=== PATIENT | female | born 1960 | race Two or more races ===

== ENCOUNTER → 2019-12-13 11:38 | Outpatient (BNVA) | payer MEDICARE, MEDICAID, SELFPAY | PROVIDERS: PCP Internal Medicine; Referring Provider Internal Medicine; Visit Provider Dietitian, Registered | DX: Z76.89 Persons encountering health services in other specified circumstances (principal) ==

== ENCOUNTER → 2020-01-13 12:46 | Outpatient (BNVA) | payer MEDICARE, SELFPAY | PROVIDERS: PCP Internal Medicine; Referring Provider Internal Medicine; Visit Provider Dietitian, Registered | DX: Z76.89 Persons encountering health services in other specified circumstances (principal) ==

== ENCOUNTER 2021-02-12 09:11 | Outpatient (REF) | payer MEDICARE, MEDICAID, SELFPAY ==
--- NOTE | ~2021-02-12 | XR_ITS ---
EXAMINATION: XR HAND, RIGHT CLINICAL INFORMATION: Other specified soft tissue disorders. Unspecified injury. COMPARISON: None TECHNIQUE: PA, lateral, and oblique views of the right hand. FINDINGS: No acute fracture or dislocation. Mild joint space narrowing with small marginal osteophytes at the triscaphe and 1st carpometacarpal joints as well as scattered throughout the metacarpophalangeal and interphalangeal joints. No concerning osseous erosion. No abnormal soft tissue calcification. XR/XR hand RT min 3V IMPRESSION: [id number] osteoarthritis at the triscaphe and 1st carpometacarpal joints as well as scattered throughout the metacarpophalangeal and interphalangeal joints.
== END 2021-02-12 09:12 | disposition home or self-care (01) ==
LOC: HO.XRAY 09:11
PROVIDERS: PCP Family Medicine; Visit Provider Internal Medicine
DX: S69.91XD Unspecified injury of right wrist, hand and finger(s), subsequent encounter (principal); M79.89 Other specified soft tissue disorders
CPT/HCPCS: 73130

== ENCOUNTER 2021-06-27 09:00 | Outpatient (REF) | payer MEDICARE, SELFPAY ==
--- NOTE | ~2021-06-27 | MM_ITS ---
EXAMINATION: MM SCREENING DIGITAL BREAST TOMOSYNTHESIS, BILATERAL CLINICAL INFORMATION: Screening. Asymptomatic. The lifetime risk of breast cancer based on the Tyrer-Cuzick Model is 8.6%. COMPARISON: Mammography: December 21, 2017 and studies dating back to November 25, 2011 TECHNIQUE: Digital breast tomosynthesis is performed in both the craniocaudal and mediolateral oblique views along with computer-aided detection (CAD). Synthesized 2D images are generated from the tomosynthesis. FINDINGS: There are scattered areas of fibroglandular density (ACR BI-RADS breast composition Category b). There are no new significant masses, abnormal calcifications, or other abnormalities. MM/MM tomosynthesis screening BI IMPRESSION: There are no significant changes from prior study. ASSESSMENT: BI-RADS 1: Negative RECOMMENDATION: Routine annual mammography screening. This patient's information was entered into a reminder system with a target due date for their next mammogram.
== END 2021-06-27 09:01 | disposition home or self-care (01) ==
LOC: HO.MAMMO 09:00
PROVIDERS: PCP Internal Medicine; Visit Provider Internal Medicine
DX: Z12.31 Encounter for screening mammogram for malignant neoplasm of breast (principal)
CPT/HCPCS: 77063; 77067

== ENCOUNTER → 2021-07-18 10:00 | Outpatient (BNVA) | payer MEDICARE, MEDICAID, SELFPAY | PROVIDERS: PCP Internal Medicine; Visit Provider Nurse Practitioner | DX: Z12.11 Encounter for screening for malignant neoplasm of colon (principal); K59.00 Constipation, unspecified | CPT/HCPCS: 99202; 99212 ==

== ENCOUNTER → 2022-04-16 08:54 | Day surgery (SDC) | payer MEDICARE, MEDICAID, SELFPAY ==
[2022-04-10 16:12] VITALS: BMI 29.5
--- NOTE | 2022-04-16 10:09 | PC.NURSE ---
pt having formed stool only took 1/[address] navarrete aware pt cancelled will reschedule aware careplan
== END ==
PROVIDERS: PCP Family Medicine; Visit Provider Internal Medicine Gastroenterology
DX: Z12.11 Encounter for screening for malignant neoplasm of colon (principal); Z53.8 Procedure and treatment not carried out for other reasons

== ENCOUNTER 2022-04-29 09:02 | Day surgery (SDC) | payer MEDICARE, MEDICAID, SELFPAY ==
[2022-04-29 10:02] VITALS: BP 121/50; PULSE 72; RESP 18; TEMP 36.2; O2SAT 100; BMI 26.2
[2022-04-29 10:04] LABS: Glucose, Whole Blood 76 mg/dL (60-115)
[2022-04-29] MEDS: Lactated Ringers 1,000 ML 50 ML IVCONT (10:08)
[2022-04-29] MEDS: Dextrose 5 % 100 ML 21 ML IV (10:23)
--- NOTE | 2022-04-29 10:34 | MHC.SHP ---
Pre-Procedural Eval Section A Date of Service: 04/29/22 Section B Chief Complaint: screening Relevant Family History (Specify if Yes): No Relevant Social History: None Present Medications: see Short Stay Collaborative assessment Medical History: Significant History (Obesity High cholesterol Hypertension Diabetes History of TIA no residual problems) History of Previous Operations: Relevant previous surgery/procedure and date(s) (Bilateral carpal tunnel release Cataract surgery Tonsillectomy Tubal ligation) Allergies: Allergies Allergy/AdvReac Type Severity Reaction Status Date / Time No Known Allergies Allergy Verified 04/24/22 12:30 Review of Systems Sugical H&P ROS: Negative: Constitution, Cardiovascular, Respiratory, Neurological, Psychiatric, Hem-Onc, Allergic/Immunologic, Gastrointestinal, Genitourinary, Musculoskeletal, Integumentary, Endocrine and Eyes/Ears/Nose/Throat Exam Surgical H&P Exam: Normal: HEENT, Normal: Heart, Normal: Lungs, Normal: Extremities, Normal: Abdomen, Normal: Skin and Normal: Neurological Plan Diagnosis/Plan: Unchanged I have reviewed the history and physical and performed a pertinent physical examination on my patient. No changes have occurred unless specified. Time Spent With Patient Time: Total time managing care of this patient today ____ minutes.
--- NOTE | 2022-04-29 10:36 | W.PM.OPN ---
Operative Note Operative Note Date of Service: 04/29/22 Narrative: Operative Information Procedure Description: Colonoscopy Indication: screening Anesthesia: MAC COLONOSCOPY Instrument: Olympus variable stiffness pediatric scope 190L Colonoscopy Monitoring: Vital signs and clinical assessment, continuous EKG monitoring, Pulse oximetry, Carbon Dioxide monitoring and blood pressure monitoring were done throughout the procedure. Colon withdrawal time was 10 minutes. Procedure: The patient was placed in the left lateral decubitis position and pre-procedure medications were administered. After a digital rectal examination of the ano-rectum, the video colonoscope was inserted into the rectum and advanced through the colon to the cecum/TI. The colonoscope was slowly withdrawn in a retrograde panoramic fashion and the colon mucosa was carefully examined including a retroflexed view of the rectum. Findings and interventions are described below. Procedure Difficulty: easy Findings: Terminal Ileum-normal Cecum:normal Ascending Colon: 8-10 mm sessile polyp removed with cold snare Transverse Colon -normal Descending Colon:normal Sigmoid Colon: mild diverticulosis Rectum: Retroflexion with medium sized internal hemorrhoids, grade I Anorectum - normal Colon preparation: [place] Bowel Preparation Scale Right colon; 1-2 Transverse colon: 2 Left colon; 1-2 (0 = Unprepared colon segment with mucosa not seen due to solid stool that cannot be cleared. 1 = Portion of mucosa of the colon segment seen, but other areas of the colon segment not well seen due to staining, residual stool and/or opaque liquid. 2 = Minor amount of residual staining, small fragments of stool and/or opaque liquid, but mucosa of colon segment seen well. 3 = Entire mucosa of colon segment seen well with no residual staining, small fragments of stool or opaque liquid) Impression and Post Procedure Diagnosis: polyp internal hemorrhoids diverticular disease Plan: High fiber diet leaflet Avoid straining at stool, epsom salts and sitz bath, anusol supps or cream Repeat Colonoscopy in 6-8 months due to prep or earlier if clinically indicated Above findings were reviewed with the patient and relevant handouts were provided if indicated.
[2022-04-29 10:50] LABS: Glucose, Whole Blood 83 mg/dL (60-115)
[2022-04-29 11:20] VITALS: BP 108/52; PULSE 64; RESP 16; TEMP 36.1; O2SAT 100
[2022-04-29 11:35] VITALS: BP 120/58; PULSE 66; RESP 16; TEMP 36.2; O2SAT 100
== END 2022-04-29 12:13 | disposition home or self-care (01) ==
LOC: HO.SSS 09:02
PROVIDERS: PCP Family Medicine; Visit Provider Internal Medicine Gastroenterology
PROC: 0DJD8ZZ Inspection of Lower Intestinal Tract, Via Natural or Artificial Opening Endoscopic (ICD-10-PCS; CPT 45378; principal; 2022-04-29 10:20)
DX: Z12.11 Encounter for screening for malignant neoplasm of colon (principal); D12.2 Benign neoplasm of ascending colon; K57.30 Diverticulosis of large intestine without perforation or abscess without bleeding; K64.8 Other hemorrhoids; E78.00 Pure hypercholesterolemia, unspecified; I10 Essential (primary) hypertension
CPT/HCPCS: 45385; 82947; 88305

== ENCOUNTER 2022-07-22 10:47 | Outpatient (REF) | payer OTHER, SELFPAY ==
--- NOTE | ~2022-07-22 | MM_ITS ---
EXAMINATION: MM SCREENING DIGITAL BREAST TOMOSYNTHESIS, BILATERAL CLINICAL INFORMATION: Screening. Asymptomatic. The lifetime risk of breast cancer based on the Tyrer-Cuzick Model is 11%. COMPARISON: Mammography: 06/27/2021, 12/21/2017, 10/22/2015 TECHNIQUE: Digital breast tomosynthesis is performed in both the craniocaudal and mediolateral oblique views along with computer-aided detection (CAD). Synthesized 2D images are generated from the tomosynthesis. FINDINGS: There are scattered areas of fibroglandular density (ACR BI-RADS breast composition Category b). Parenchymal pattern is similar to prior exams. There are scattered asymmetries similar to prior studies. No significant mass or developing density or architectural abnormality. Again, there is a circumscribed mass posterior central 3:00 right breast with moderate coarse calcifications consistent with degenerating fibroadenoma. The axilla and skin contours are unremarkable. There are no significant changes. MM/MM tomosynthesis screening BI IMPRESSION: No mammographic evidence of malignancy. ASSESSMENT: BI-RADS 2: Benign RECOMMENDATION: Routine annual mammography screening. This patient's information was entered into a reminder system with a target due date for their next mammogram.
== END 2022-07-22 10:48 | disposition home or self-care (01) ==
LOC: HO.MAMMO 10:47
PROVIDERS: PCP Family Medicine; Visit Provider Family Medicine
DX: Z12.31 Encounter for screening mammogram for malignant neoplasm of breast (principal)
CPT/HCPCS: 77063; 77067

== ENCOUNTER 2022-09-02 11:22 | Outpatient (REF) | payer OTHER, SELFPAY ==
[2022-09-02 13:39] LABS: Estimated Average Glucose 237 mg/dL; Hemoglobin A1c % 9.9 %
[2022-09-02 14:12] LABS: Vitamin B12 627 pg/mL (200-900)
== END 2022-09-02 11:23 | disposition home or self-care (01) ==
LOC: HO.HHCL 11:22
PROVIDERS: Visit Provider Family Medicine
DX: R80.9 Proteinuria, unspecified (principal); E11.29 Type 2 diabetes mellitus with other diabetic kidney complication; Z79.4 Long term (current) use of insulin
CPT/HCPCS: 36415; 82607; 83036

== ENCOUNTER 2022-11-04 08:52 | Day surgery (SDC) | payer OTHER, SELFPAY ==
[2022-10-31 11:50] VITALS: BMI 26.2
--- NOTE | 2022-11-03 09:22 | P.CONAN_ITS ---
Documented by User: Kerrie Garcia NP 11/03/22 09:24 HPI - Anesthesia Eval Consult details Narrative: 62yo F for Colonoscopy s/p colo 04/2022 with MAC PMFSH Active Problems Active Problems: All Active Problems (Updated 05/05/22 @ 13:24 by ELDA Nagel) Tubular adenoma of colon (Acute) Constipation (Acute) Colon cancer screening (Acute) Obesity (BMI 30-39.9) (Acute) Anxiety and depression (Acute) Hypercholesterolemia (Acute) Hypertension (Acute) Type 2 diabetes mellitus with hyperglycemia (Acute) Past Medical History Medical History Diabetes CVA (cerebral vascular accident) Obesity (BMI 30-39.9) Anxiety and depression Hypercholesterolemia Hypertension Family History Family History Father No problems noted. Mother Breast cancer Brother Diabetes Brother Drug abuse Surgical History Surgical History History of carpal tunnel release History of cataract surgery History of tonsillectomy History of tubal ligation Social History Social History Patient Tobacco Use Status: Former Tobacco user Quit Date: 12 years ago Meds Allergies Allergy/AdvReac Type Severity Reaction Status Date / Time No Known Allergies Allergy Verified 04/24/22 12:30 Home Medications Medication Instructions Recorded Confirmed Last Taken Type atorvastatin 20 mg tablet 20 mg PO DAILY 07/18/21 04/24/22 Unknown History gabapentin 100 mg capsule 100 mg PO TID 07/18/21 04/24/22 Unknown History glipizide 10 mg tablet mg PO 07/18/21 Unknown History sucralfate 100 mg/mL oral PO 07/18/21 Unknown History suspension Exam Exam Date and Time: November 03, 2022 09 Height,Weight and Vital Signs: Height 5 ft Weight 60.78 kg Assessment and Plan Assessment Anesthesia Assessment: Chart Reviewed Documented by User: Evelyn Carlos MD 11/04/22 09:55 [facility] Active Problems Active Problems: All Active Problems (Updated 11/04/22 @ 09:38 by Evelyn Carlos MD) Tubular adenoma of colon (Acute) Constipation (Acute) Colon cancer screening (Acute) Obesity (BMI 30-39.9) (Acute) Anxiety and depression (Acute) Hypercholesterolemia (Acute) Hypertension (Acute) Type 2 diabetes mellitus with hyperglycemia (Acute) Incomplete prep 05/15. For repeat colonoscopy today Remote h/o CVA - last 2007. No residual effects Past Medical History Medical History Diabetes CVA (cerebral vascular accident) Obesity (BMI 30-39.9) Anxiety and depression Hypercholesterolemia Hypertension Family History Family History Father No problems noted. Mother Breast cancer Brother Diabetes Brother Drug abuse Family history of problems with anesthesia: No Surgical History Surgical History History of carpal tunnel release History of cataract surgery History of tonsillectomy History of tubal ligation History of Problems with Anesthesia: No Social History Social History Patient Tobacco Use Status: Former Tobacco user Quit Date: 12 years ago Meds Allergies Allergy/AdvReac Type Severity Reaction Status Date / Time No Known Allergies Allergy Verified 04/24/22 12:30 Home Medications Medication Instructions Recorded Confirmed Last Taken Type atorvastatin 20 mg tablet 20 mg PO DAILY 07/18/21 04/24/22 Unknown History gabapentin 100 mg capsule 100 mg PO TID 07/18/21 04/24/22 Unknown History glipizide 10 mg tablet mg PO 07/18/21 Unknown History sucralfate 100 mg/mL oral PO 07/18/21 Unknown History suspension Exam Height,Weight and Vital Signs: Height 5 ft Weight 60.78 kg Vital Signs Temp Pulse Resp BP Pulse Ox O2 Del Method 11/04/22 09:12 98 F 62 18 139/63 99 Room Air Pertinent Lab Results Pertinent Lab Results: POC 174mg% Airway Mallampati Class: II TM Dist: >3cm Neck ROM: Full Denture: Upper and Lower Loose/Missing/Broken Teeth: Yes Heart: RRR Lungs: CTAB Assessment and Plan Assessment Anesthesia Assessment: Anesthesia Plan Discussed Final Anesthetic Review Family History of Problems with Anesthesia: No History of Problems with Anesthesia: No ASA Class: III Final Preanesthetic Review: No Changes in Pt Med Stat, Meds/Allgs Chart Reviewed, Consent Obtained/Reviewed and Anes Risks/Benef Reviewed Patient Risk: Intermediate Procedure Risk: Low Assessment/Block/Sedation in SS: Assess/Block/Sedation-SS Anesthetic Plan Anesthetic Plan: MAC: Disposition: Standard PACU
[2022-11-04 09:12] VITALS: BP 139/63; PULSE 62; RESP 18; TEMP 36.6; O2SAT 99
[2022-11-04] MEDS: Lactated Ringers 1,000 ML 100 ML IVCONT (09:33)
--- NOTE | 2022-11-04 09:44 | MHC.SHP ---
Pre-Procedural Eval Section A Date of Service: 11/04/22 Section B Chief Complaint: Encounter for screening for malignant neoplasm of Relevant Family History (Specify if Yes): No Relevant Social History: None Present Medications: see Short Stay Collaborative assessment Medical History: Significant History (Diabetes CVA (cerebral vascular accident) Obesity (BMI 30-39.9) Anxiety and depression Hypercholesterolemia Hypertension) History of Previous Operations: Relevant previous surgery/procedure and date(s) (History of carpal tunnel release History of cataract surgery History of tonsillectomy History of tubal ligation) Allergies: Allergies Allergy/AdvReac Type Severity Reaction Status Date / Time No Known Allergies Allergy Verified 04/24/22 12:30 Review of Systems Sugical H&P ROS: Negative: Constitution, Cardiovascular, Respiratory, Neurological, Psychiatric, Hem-Onc, Allergic/Immunologic, Gastrointestinal, Genitourinary, Musculoskeletal, Integumentary, Endocrine and Eyes/Ears/Nose/Throat Exam Surgical H&P Exam: Normal: HEENT, Normal: Heart, Normal: Lungs, Normal: Extremities, Normal: Abdomen, Normal: Skin and Normal: Neurological Plan Diagnosis/Plan: Unchanged I have reviewed the history and physical and performed a pertinent physical examination on my patient. No changes have occurred unless specified. Time Spent With Patient Time: Total time managing care of this patient today ____ minutes.
--- NOTE | 2022-11-04 10:33 | P.OP_ITS ---
Operative Note Operative Note Date of Service: 11/04/22 Narrative: Operative Information Procedure Description: Colonoscopy Indication: hx of colon polyps Anesthesia: MAC COLONOSCOPY Instrument: Olympus variable stiffness pediatric scope 190L Colonoscopy Monitoring: Vital signs and clinical assessment, continuous EKG monitoring, Pulse oximetry, Carbon Dioxide monitoring and blood pressure monitoring were done throughout the procedure. Colon withdrawal time was 11 minutes. Procedure: The patient was placed in the left lateral decubitis position and pre-procedure medications were administered. After a digital rectal examination of the ano-rectum, the video colonoscope was inserted into the rectum and advanced through the colon to the cecum/TI. The colonoscope was slowly withdrawn in a retrograde panoramic fashion and the colon mucosa was carefully examined including a retroflexed view of the rectum. Findings and interventions are described below. Procedure Difficulty: moderate Terminal Ileum-not intubated Cecum:normal Ascending Colon: 8-10 mm sessile polyp removed with cold snare Transverse Colon -normal Descending Colon:normal Sigmoid Colon: mild diverticulosis Rectum: Retroflexion with medium sized internal hemorrhoids, grade I Anorectum - normal Colon preparation: [place] Bowel Preparation Scale Right colon; 1 Transverse colon: 2 Left colon; 1-2 (0 = Unprepared colon segment with mucosa not seen due to solid stool that cannot be cleared. 1 = Portion of mucosa of the colon segment seen, but other areas of the colon segment not well seen due to staining, residual stool and/or opaque liquid. 2 = Minor amount of residual staining, small fragments of stool and/or opaque liquid, but mucosa of colon segment seen well. 3 = Entire mucosa of colon segment seen well with no residual staining, small fragments of stool or opaque liquid) Impression and Post Procedure Diagnosis: internal hemorrhoids diverticular disease Plan: High fiber diet leaflet Avoid straining at stool, epsom salts and sitz bath, anusol supps or cream Repeat Colonoscopy in 12 months due to prep or earlier if clinically indicated--next time consider 2 d prep Above findings were reviewed with the patient and relevant handouts were provided if indicated.
[2022-11-04 11:28] VITALS: BP 127/61; PULSE 72; RESP 16; TEMP 36.2; O2SAT 98
[2022-11-04 11:43] VITALS: BP 137/71; PULSE 68; RESP 16; TEMP 36.1; O2SAT 98
== END 2022-11-04 12:26 | disposition home or self-care (01) ==
PROVIDERS: PCP Family Medicine; Visit Provider Internal Medicine Gastroenterology
PROC: 0DJD8ZZ Inspection of Lower Intestinal Tract, Via Natural or Artificial Opening Endoscopic (ICD-10-PCS; CPT 45378; principal; 2022-11-04 11:00)
DX: Z12.11 Encounter for screening for malignant neoplasm of colon (principal); K63.5 Polyp of colon; K57.30 Diverticulosis of large intestine without perforation or abscess without bleeding; K64.0 First degree hemorrhoids; Z86.010 Personal history of colon polyps; K59.00 Constipation, unspecified; E11.9 Type 2 diabetes mellitus without complications; E78.00 Pure hypercholesterolemia, unspecified; I10 Essential (primary) hypertension; Z86.73 Personal history of transient ischemic attack (TIA), and cerebral infarction without residual deficits; Z87.891 Personal history of nicotine dependence; Z79.4 Long term (current) use of insulin; Z79.899 Other long term (current) drug therapy
CPT/HCPCS: 45385

== ENCOUNTER → 2022-11-04 08:52 | Outpatient (BNV) | payer OTHER, SELFPAY | PROVIDERS: PCP Family Medicine; Visit Provider Internal Medicine Gastroenterology | DX: Z12.11 Encounter for screening for malignant neoplasm of colon (principal); Z86.010 Personal history of colon polyps; D12.2 Benign neoplasm of ascending colon; K57.30 Diverticulosis of large intestine without perforation or abscess without bleeding; K64.9 Unspecified hemorrhoids | CPT/HCPCS: 45385 ==

== ENCOUNTER 2023-07-29 09:39 | Outpatient (REF) | payer OTHER, SELFPAY ==
--- NOTE | ~2023-07-29 | MM_ITS ---
EXAMINATION: MM SCREENING DIGITAL BREAST TOMOSYNTHESIS, BILATERAL CLINICAL INFORMATION: Screening. Asymptomatic. COMPARISON: Mammography: This study is compared with prior exams dating back to 2018. TECHNIQUE: Digital breast tomosynthesis is performed in both the craniocaudal and mediolateral oblique views along with computer-aided detection (CAD). Synthesized 2D images are generated from the tomosynthesis. FINDINGS: There are scattered areas of fibroglandular density (ACR BI-RADS breast composition Category b). There are no significant masses, abnormal calcifications, or other abnormalities. There is an area of coarse, unchanged, benign calcification in the deep third of the superior aspect of the right breast. MM/MM tomosynthesis screening BI IMPRESSION: No mammographic evidence of malignancy. ASSESSMENT: BI-RADS BI-RADS 2 - Benign Findings RECOMMENDATION: Routine annual mammography screening. 1 year F/U This examination should not preclude the clinical evaluation of a suspicious palpable abnormality. This patient's information was entered into a reminder system with a target due date for their next mammogram.
== END 2023-07-29 09:40 | disposition home or self-care (01) ==
LOC: HO.MAMMO 09:39
PROVIDERS: PCP Family Medicine; Visit Provider Internal Medicine
DX: Z12.31 Encounter for screening mammogram for malignant neoplasm of breast (principal)
CPT/HCPCS: 77063; 77067

== ENCOUNTER → 2023-07-29 09:45 | Outpatient (BNV) | payer OTHER, SELFPAY | PROVIDERS: PCP Family Medicine; Visit Provider Radiology Diagnostic Radiology | DX: Z12.31 Encounter for screening mammogram for malignant neoplasm of breast (principal) | CPT/HCPCS: 77063; 77067 ==

== ENCOUNTER 2023-08-21 09:24 | Outpatient (REF) | payer OTHER, SELFPAY ==
[2023-08-21 11:25] LABS: Hematocrit 38.3 % (37.0-47.0); Hemoglobin 12.4 g/dl (12.0-16.0); Mean Corpuscular HGB Conc 32.4 g/dl (31.0-35.0); Mean Corpuscular Hemoglobin 28.2 pg (27.0-33.0); Mean Corpuscular Volume 87.2 fL (80.0-98.0); Mean Platelet Volume 11.8 fL (9.4-12.3); Platelet Count 255 X10*3/uL (160-400); Red Blood Count 4.39 X10*6/uL (4.20-5.50); Red Cell Distribution Width 13.2 % (11.0-16.0); White Blood Count 5.1 X10*3/uL (4.8-10.8)
[2023-08-21 11:52] LABS: Hemoglobin A1c % > 14.0 % (<6.0)
[2023-08-21 11:56] LABS: HBS Num1 0.43 mIU/mL (0-7.99); HBc Num1 0.19 S/CO (0.00-0.79); HBsAGNum1 0.48 S/CO (0.00-0.99); HIV AB/AG Nonreactive (Nonreactive); HIV Num 1 0.05 S/CO (0.00-0.99); Hepatitis A Antibody IgG REACTIVE (Nonreactive); Hepatitis B Core Antibody Nonreactive (Nonreactive); Hepatitis B Surface Antigen Negative (Negative); ~Hepatitis A Antibody IgG 9.89 S/CO (0.00-0.99); ~Hepatitis B Surface Antibody NONREACTIVE (Nonreactive); ~Hepatitis C Antibody Nonreactive (Nonreactive)
[2023-08-21 11:58] LABS: Alanine Aminotransferase 15 U/L (0-31); Albumin Level 4.2 g/dL (3.5-5.0); Alkaline Phosphatase 92 U/L (39-117); Anion Gap 13 (12-20); Aspartate Amino Transferase 15 U/L (5-31); Bilirubin Direct 0.1 mg/dL (0.0-0.5); Bilirubin Total 0.4 mg/dL (0.0-1.0); Blood Urea Nitrogen 14 mg/dL (9-16); Calcium 10.4 mg/dL (8.4-10.2); Carbon Dioxide 30 mmol/L (22-29); Chloride 100 mmol/L (96-108); Cholesterol 227 mg/dL (<200); Creatinine Urine 50.58 mg/dL; Estimated Glomerular Filt Rate > 60; Glucose Random 352 mg/dL (60-115); HDL Cholesterol 47 mg/dL (>40); LDL Cholesterol Calculated 126 mg/dL (<100); Microalbum/Creatinine Ratio Ur 55.3 ug/mg cr (<30); Potassium 5.1 mmol/L (3.3-5.1); Sodium 138 mmol/L (135-145); Total Protein 7.5 g/dL (6.5-8.0); Triglycerides 274 mg/dL (<150)
[2023-08-21 12:04] LABS: Thyroid Stimulating Hormone 1.53 uIU/mL (0.32-4.0); Vitamin D 25-OH Total 25.8 ng/mL (>30)
[2023-08-21 17:47] LABS: CT PCR NOT DETECTED (Not Detect.); NG PCR NOT DETECTED (Not Detect.)
[2023-08-24 16:24] LABS: RPR Rapid Plasma Reagin NON-REACTIVE (NON-REACTIVE)
== END 2023-08-21 09:25 | disposition home or self-care (01) ==
LOC: HO.HHCL 09:24
PROVIDERS: Visit Provider Family Medicine
DX: Z00.00 Encounter for general adult medical examination without abnormal findings (principal); E11.29 Type 2 diabetes mellitus with other diabetic kidney complication; R80.9 Proteinuria, unspecified; Z79.4 Long term (current) use of insulin; E78.49 Other hyperlipidemia; F33.9 Major depressive disorder, recurrent, unspecified; R20.2 Paresthesia of skin; N89.8 Other specified noninflammatory disorders of vagina; B35.1 Tinea unguium
CPT/HCPCS: 36415; 80048; 80061; 80076; 82043; 82306; 82570; 83036; 84439; 84443; 85027; 86592; 86704; 86706; 86708; 86803; 87340; 87389; 87491; 87591

== ENCOUNTER 2023-09-11 16:33 | Outpatient (REF) | payer OTHER, SELFPAY ==
[2023-09-12 05:55] LABS: CT PCR NOT DETECTED (Not Detect.); NG PCR NOT DETECTED (Not Detect.)
[2023-09-15 09:58] LABS: HPV mRNA E6/E7 Not Detected (Not Detected)
== END 2023-09-11 16:34 | disposition home or self-care (01) ==
LOC: HO.HHCLNP 16:33
PROVIDERS: Visit Provider Family Medicine
DX: Z01.419 Encounter for gynecological examination (general) (routine) without abnormal findings (principal)
CPT/HCPCS: 36415; 87491; 87591; 87624; 88175

== ENCOUNTER 2023-10-16 11:43 | Outpatient (REF) | payer OTHER, SELFPAY ==
[2023-10-16 13:23] LABS: MANUAL DIFF FLAG NO
[2023-10-16 13:37] LABS: Basophils Absolute Auto 0.1 X10*3/uL (0.0-0.2); Basophils Percent Auto 0.9 % (0-2); Eosinophils Absolute Auto 0.2 X10*3/uL (0.0-0.4); Eosinophils Percent Auto 2.7 % (0-4); Hematocrit 37.5 % (37.0-47.0); Imm Gran Abs Auto 0.03 X10*3/uL (0.00-0.03); Imm Gran Pct Auto 0.4 % (0.0-0.4); Lymphocytes Absolute Auto 3.2 X10*3/uL (1.2-4.9); Lymphocytes Percent Auto 39.7 % (20-40); Mean Corpuscular Hemoglobin 28.3 pg (27.0-33.0); Mean Corpuscular Volume 88.4 fL (80.0-98.0); Mean Platelet Volume 11.6 fL (9.4-12.3); Monocytes Absolute Auto 0.7 X10*3/uL (0.1-1.2); Monocytes Percent Auto 8.3 % (2-11); Neutrophils Absolute Auto 3.9 x10*3/uL (2.0-8.3); Platelet Count 340 X10*3/uL (160-400); Red Blood Count 4.24 X10*6/uL (4.20-5.50); Red Cell Distribution Width 13.2 % (11.0-16.0); White Blood Count 8.2 X10*3/uL (4.8-10.8)
[2023-10-16 13:59] LABS: Alanine Aminotransferase 11 U/L (0-31); Albumin Level 4.4 g/dL (3.5-5.0); Alkaline Phosphatase 77 U/L (39-117); Anion Gap 13 (12-20); Aspartate Amino Transferase 13 U/L (5-31); Bilirubin Total 0.4 mg/dL (0.0-1.0); Blood Urea Nitrogen 17 mg/dL (9-16); Calcium 10.8 mg/dL (8.4-10.2); Carbon Dioxide 28 mmol/L (22-29); Chloride 105 mmol/L (96-108); Estimated Glomerular Filt Rate > 60; Glucose Random 174 mg/dL (60-115); Lipase 76 U/L (8-78); Potassium 4.7 mmol/L (3.3-5.1); Sodium 141 mmol/L (135-145); Total Protein 8.2 g/dL (6.5-8.0)
== END 2023-10-16 11:44 | disposition home or self-care (01) ==
LOC: HO.HHCL 11:43
PROVIDERS: Visit Provider Internal Medicine Geriatric Medicine
DX: R11.2 Nausea with vomiting, unspecified (principal); Z13.89 Encounter for screening for other disorder
CPT/HCPCS: 36415; 80053; 83690; 85025

== ENCOUNTER 2023-10-16 19:30 | Emergency (ER) | payer OTHER, SELFPAY ==
--- NOTE | ~2023-10-16 | CT_ITS ---
EXAMINATION: CT ABDOMEN PELVIS WITH IV CONTRAST CLINICAL INFORMATION: upper ABD pain, N/V, poor PO inake, hx DM COMPARISON: None. TECHNIQUE: IV contrast enhanced CT of the abdomen and pelvis Intravenous Contrast: Omnipaque [address] examination was performed using dose optimization techniques as appropriate, variously including the following: *Automated exposure control *Adjustment of mA and/or kV according to patient size (this includes techniques or standardized protocols for targeted exams where dose is matched to indication/reason for exam; i.e. extremities or head) *Use of iterative reconstruction technique DLP: 456 mGy-cm FINDINGS: Visualized lung bases are clear. The liver is normal in appearance. Partial visualization is made of multiple gallstones within the gallbladder lumen. No pericholecystic fluid collections or gallbladder wall inflammatory changes noted. Partial visualization is made of a gallstone in the region of the neck of the gallbladder. The common bile duct is normal in diameter. No biliary duct dilatation noted. The pancreas, spleen, adrenal glands and kidneys are normal in appearance. Mild distention of the urinary bladder is visualized. Mild, borderline concentric mural thickening of the urinary bladder identified. Mild colonic diverticulosis is noted. Appendix is normal in appearance. No free intraperitoneal fluid or gas collections. No intestinal dilatation or mural thickening noted. Normal appearance of the stomach. The abdominal wall demonstrates no significant hernias. A 4 cm hypodense focus is present in the left uterine body likely representing a fibroid. No adnexal lesions identified. Moderate scattered aortoiliac calcific atherosclerosis noted. No suspicious skeletal abnormalities. CT/CT abdomen pelvis w IV con IMPRESSION: 1. Mild distention of the urinary bladder with mild, borderline concentric mural thickening of the urinary bladder. Findings may correlate with cystitis. 2. Mild colonic diverticulosis. No evidence of acute diverticulitis. No free intraperitoneal fluid or gas collections. Normal appendix. 3. Cholelithiasis. No biliary duct dilatation. 4. 4 cm left uterine body fibroid. Electronically signed by: Jaskaran Fraga MD 10/17/2023 12:32 AM EDT
[2023-10-16 19:33] VITALS: BP 152/49; PULSE 82; RESP 18; TEMP 36.8; O2SAT 99; BMI 27.0
[2023-10-16 20:43] LABS: MANUAL DIFF FLAG NO
[2023-10-16 20:45] LABS: Basophils Absolute Auto 0.1 X10*3/uL (0.0-0.2); Basophils Percent Auto 0.7 % (0-2); Eosinophils Absolute Auto 0.3 X10*3/uL (0.0-0.4); Eosinophils Percent Auto 2.8 % (0-4); Hematocrit 37.2 % (37.0-47.0); Hemoglobin 12.2 g/dl (12.0-16.0); Imm Gran Abs Auto 0.03 X10*3/uL (0.00-0.03); Imm Gran Pct Auto 0.3 % (0.0-0.4); Lymphocytes Absolute Auto 3.3 X10*3/uL (1.2-4.9); Lymphocytes Percent Auto 29.1 % (20-40); Mean Corpuscular HGB Conc 32.8 g/dl (31.0-35.0); Mean Corpuscular Volume 88.6 fL (80.0-98.0); Monocytes Absolute Auto 0.9 X10*3/uL (0.1-1.2); Monocytes Percent Auto 7.7 % (2-11); Neutrophils Absolute Auto 6.7 x10*3/uL (2.0-8.3); Neutrophils Percent Auto 59.4 % (45-73); Platelet Count 335 X10*3/uL (160-400); Red Cell Distribution Width 13.2 % (11.0-16.0); White Blood Count 11.3 X10*3/uL (4.8-10.8)
[2023-10-16 21:01] LABS: Alanine Aminotransferase 12 U/L (0-31); Albumin Level 4.3 g/dL (3.5-5.0); Alkaline Phosphatase 76 U/L (39-117); Anion Gap 13 (12-20); Aspartate Amino Transferase 17 U/L (5-31); Bilirubin Total 0.3 mg/dL (0.0-1.0); Blood Urea Nitrogen 19 mg/dL (9-16); Calcium 10.4 mg/dL (8.4-10.2); Carbon Dioxide 25 mmol/L (22-29); Chloride 104 mmol/L (96-108); Creatinine Clr Calc Pharmacy 60.9; Estimated Glomerular Filt Rate > 60; Glucose Random 215 mg/dL (60-115); Magnesium 1.8 mg/dL (1.6-2.6); Potassium 4.5 mmol/L (3.3-5.1); Sodium 137 mmol/L (135-145)
[2023-10-16 21:08] LABS: Lipase 309 U/L (8-78)
[2023-10-16 21:13] LABS: Appearance Urine Cloudy; Color Urine Yellow; Glucose Urine UA >=1000 mg/dL (Negative); Leukocyte Esterase Urine Moderate (2+) (Negative); Nitrite Urine Positive (Negative); PH 6.5 (5.0-9.0); Specific Gravity - Urine 1.025 (1.005-1.025); UMIC TRIGGER UACC YES; Urine Blood Negative (Negative); Urine Ketones Trace mg/dL (Negative); Urine Protein 100 (2+) mg/dL (Neg-Trace)
[2023-10-16 21:18] LABS: Bacteria Urine 4+ (None Seen); Hyaline Casts Urine 0-2 /LPF (0-2); RBC Urine 0-2 /HPF (0-2); Squamous Epithelial Cell Urine 0-2 /HPF (0-2); UACC Culture Trigger YES; WBC Urine >50 /HPF (0-5)
[2023-10-16 21:23] LABS: Influenza A PCR NEGATIVE (Negative); Influenza B PCR NEGATIVE (Negative); Resp Syncy Virus RNA Qual PCR NEGATIVE (Negative); SARS COV2 PCR INHOUSE NEGATIVE (Negative)
[2023-10-16 23:38] VITALS: BP 115/59; PULSE 88; RESP 16; TEMP 36.8; O2SAT 98
--- NOTE | 2023-10-16 23:39 | MHC.EDTECH ---
This pct assumed care of pt at 2300 ,vitals taken ,no apparent distress noted ,call patel within pt reach .
--- NOTE | 2023-10-16 23:49 | ED_ITS ---
HPI - Abdominal Pain General Chief Complaint: Abdominal Pain Stated Complaint: upper abd pain, nausea, x1wk Time Seen by Provider: 10/16/23 23:26 Source: patient Mode of arrival: ambulatory Limitations: no limitations History of Present Illness HPI narrative: Patient is a 63-year-old female who presents emergency department for evaluation. She reports that she has been experiencing diffuse upper abdominal pain with nausea vomiting poor appetite and a single episode of diarrhea. Onset of symptoms was over the past week. She admits to having some dysuria upon initiation of urinary stream, but denies frequency, urgency, hesitancy, or hematuria. Denies lower abdominal pain or back pain. Denies fevers or chills. Patient is a diabetic, reports her blood sugar levels have been around 140, compliant with her Lantus nightly, does not take any sliding scale/short-acting insulin. Related Data Home Medications ?Medication ?Instructions ?Recorded ?Confirmed atorvastatin 20 mg tablet 20 mg PO DAILY 07/18/21 04/24/22 gabapentin 100 mg capsule 100 mg PO TID 07/18/21 04/24/22 glipizide 10 mg tablet mg PO 07/18/21 sucralfate 100 mg/mL oral PO 07/18/21 suspension Previous Rx's ?Medication ?Instructions ?Recorded fenofibrate 160 mg tablet 160 mg PO QAM #30 tabs 04/19/20 fluoxetine 20 mg capsule 20 mg PO DAILY 90 days #90 caps 08/30/20 lisinopril 2.5 mg tablet 2.5 mg PO DAILY 90 days #90 tabs 08/30/20 omeprazole 40 mg capsule,delayed 40 mg PO DAILY 90 days #90 caps 08/30/20 release pen needle, diabetic 31 gauge x #1,200 ea 08/30/2007/08 (BD Ultra-Fine Short Pen Needle) pioglitazone 45 mg tablet 45 mg PO DAILY 90 days #90 tabs 08/30/20 blood sugar diagnostic (FreeStyle #3 boxes 08/31/20 Lite Strips) insulin glargine 100 unit/mL (3 30 unit (0.3 mL) subcut QAM #15 mL 08/31/20 mL) subcutaneous pen (Lantus Solostar U-100 Insulin) lancets 28 gauge (FreeStyle #3 boxes 08/31/20 Lancets) metformin 1,000 mg tablet 500 mg (1/2 x 1,000 mg) PO BID 90 08/31/20 days #90 tabs cefuroxime axetil 250 mg tablet 250 mg PO BID #12 tabs 10/17/23 Allergies Allergy/AdvReac Type Severity Reaction Status Date / Time No Known Allergies Allergy Verified 10/16/23 19:35 Review of Systems Review of Systems Yes all other systems are reviewed and are negative [facility] Past Medical History Attestation statement: The following information was validated with the patient. Source: old records reviewed Medical History Diabetes CVA (cerebral vascular accident) Obesity (BMI 30-39.9) Anxiety and depression Hypercholesterolemia Hypertension Surgical History History of carpal tunnel release History of cataract surgery History of tonsillectomy History of tubal ligation Family History Family History Father No problems noted. Mother Breast cancer Brother Diabetes Brother Drug abuse Social History Social History Patient Tobacco Use Status: Former Tobacco user Advance Directives: No Advance Directives Information Provided: No Do you have a plan to hurt others: No Plan Physical Exam ED Vital Signs: Vital Signs - 24 hr 10/16/23 19:33 10/16/23 23:38 Temperature 98.3 F 98.2 F Pulse Rate 82 88 Respiratory Rate 18 16 Blood Pressure 152/49 H 115/59 L Pulse Oximetry 99 98 Oxygen Delivery Method Room Air Room Air BMI result Body Mass Index 27.0 Appearance: Alert.?Oriented to person, place and time. No acute distress.?Normal affect. Eyes: Pupils equal, round and reactive to light.? ENT: Pharynx normal.?? Neck: Normal inspection.? Neck supple.?? CVS: Heart sounds normal. Normal heart rate and rhythm.? Pulses normal.?? Respiratory: No respiratory distress.? Lung sounds clear to auscultation bilaterally?? Abdomen: Soft with diffuse upper abdominal tenderness upon palpation. No CVA tenderness. No lower abdominal tenderness. Normoactive bowel sounds. No pulsatile mass.?? Skin: Skin warm and dry.? Normal skin color.? Extremities: No lower extremity edema.? N Neuro: Moves all extremities spontaneously. Sensation intact bilaterally. Ambulates with normal steady gait. Course Reevaluation(s) Reevaluation #1: CT of the abdomen and pelvis reveals distention of the bladder, consistent with cystitis, diverticulosis but no diverticulitis, cholelithiasis without biliary ductal dilation, no evidence of acute pancreatitis. At this time symptoms most likely secondary to urinary tract infection, have sent prescription for antibiotic to patient's pharmacy. Discussed strict return precautions, worrisome signs and symptoms that would warrant re-evaluation in the emergency department. All questions answered. Medical Decision Making Medical Decision Making [facility] Narrative: Patient is a 63-year-old female with past medical history of diabetes, CVA, hypertension, hypercholesterolemia, anxiety, depression who presents emergency department for evaluation of upper abdominal pain with nausea vomiting poor appetite in addition to mild dysuria as per HPI. Overall she appears well, nontoxic, afebrile at is without tachycardia. Serum labs indicating leukocytosis of 11,300 without left shift, no anemia or thrombocytopenia. No electrolyte derangement. No RYANN. Non-anion gap hyperglycemia with random glucose 215. LFTs within normal range, lipase elevated at 309. Concern for possible pancreatitis given history of diabetes, CT of the abdomen and pelvis to be obtained for further evaluation. Urinalysis with pyuria positive nitrites, concern for urinary tract infection, treated with Rocephin. No CVA tenderness or lower abdominal pain on examination. Differential Diagnosis Differential Diagnoses: The differential diagnosis associated with the presentation includes (See narrative above) Admission/Observation Consideration of admission/observation: Escalation of care including admission/observation considered Lab Data [facility] Lab Attestation statement: I reviewed the patient's lab results. (See narrative above) 10/16/23 20:38 10/16/23 20:38 Labs: Lab Results 10/16/23 10/16/23 Range/Units 20:38 20:47 WBC 11.3 H (4.8-10.8) X10*3/uL RBC 4.20 (4.20-5.50) X10*6/uL Hgb 12.2 (12.0-16.0) g/dl Hct 37.2 (37.0-47.0) % MCV 88.6 (80.0-98.0) fL MCH 29.0 (27.0-33.0) pg MCHC 32.8 (31.0-35.0) g/dl RDW 13.2 (11.0-16.0) % Plt Count 335 (160-400) X10*3/uL MPV 11.0 (9.4-12.3) fL Immature Gran % (Auto) 0.3 (0.0-0.4) % Neut % (Auto) 59.4 (45-73) % Lymph % (Auto) 29.1 (20-40) % [place] % (Auto) 7.7 (2-11) % Eos % (Auto) 2.8 (0-4) % Baso % (Auto) 0.7 (0-2) % Lymph # (Auto) 3.3 (1.2-4.9) X10*3/uL [place] # (Auto) 0.9 (0.1-1.2) X10*3/uL Eos # (Auto) 0.3 (0.0-0.4) X10*3/uL Baso # (Auto) 0.1 (0.0-0.2) X10*3/uL Abs Immat Gran (auto) 0.03 (0.00-0.03) X10*3/uL Absolute Neuts (auto) 6.7 (2.0-8.3) x10*3/uL Absolute Nucleated RBC 0.000 (0.0-0.012) X10*3/uL Nucleated RBC % (auto) 0.0 (0.0-0.2) /100WBC Sodium 137 (135-145) mmol/L Potassium 4.5 (3.3-5.1) mmol/L Chloride 104 (96-108) mmol/L Carbon Dioxide 25 (22-29) mmol/L Anion Gap 13 (12-20) BUN 19 H (9-16) mg/dL Creatinine 0.78 (0.5-1.4) mg/dL Estim Creat Clear Calc 60.9 Estimated GFR > 60 Random Glucose 215 H (60-115) mg/dL Calcium 10.4 H (8.4-10.2) mg/dL Magnesium 1.8 (1.6-2.6) mg/dL Total Bilirubin 0.3 (0.0-1.0) mg/dL AST 17 (5-31) U/L ALT 12 (0-31) U/L Alkaline Phosphatase 76 (39-117) U/L Total Protein 8.0 (6.5-8.0) g/dL Albumin 4.3 (3.5-5.0) g/dL Lipase 309 H (8-78) U/L Urine Color Yellow Urine Appearance Cloudy Urine pH 6.5 (5.0-9.0) Ur Specific [place] 1.025 (1.005-1.025) Urine Protein 100 (2+) H (Neg-Trace) mg/dL Urine Glucose (UA) >=1000 H (Negative) mg/dL Urine Ketones Trace (Negative) mg/dL Urine Blood Negative (Negative) Urine Nitrite Positive H (Negative) Ur Leukocyte Esterase Moderate (2+) H (Negative) Urine RBC 0-2 (0-2) /HPF Urine WBC >50 H (0-5) /HPF Ur Squamous Epith Cells 0-2 (0-2) /HPF Urine Bacteria 4+ (None Seen) Hyaline Casts 0-2 (0-2) /LPF Influenza Type A (PCR) NEGATIVE (Negative) Influenza Type B (PCR) NEGATIVE (Negative) RSV RNA Qual (PCR) NEGATIVE (Negative) SARS-CoV-2 RNA (RT-PCR) NEGATIVE (Negative) Radiology Impression Discussion of test interpretation with radiology: I have reviewed the radiologist's reading. Radiologist Impression: CT/CT abdomen pelvis w IV con IMPRESSION: 1. Mild distention of the urinary bladder with mild, borderline concentric mural thickening of the urinary bladder. Findings may correlate with cystitis. 2. Mild colonic diverticulosis. No evidence of acute diverticulitis. No free intraperitoneal fluid or gas collections. Normal appendix. 3. Cholelithiasis. No biliary duct dilatation. 4. 4 cm left uterine body fibroid. External Record Review External record reviewed: Outpatient record Medications Administered Discontinued Medications Generic Name Dose Route Start Last Admin Trade Name Freq PRN Reason Stop Dose Admin Ceftriaxone Sodium 1 gm/ 50 mls @ 100 mls/hr 10/16/23 23:49 10/17/23 00:21 Sodium Chloride IV 10/17/23 00:18 100 mls/hr ONCE ONE Administration Sodium Chloride 1,000 mls @ 999 mls/hr 10/16/23 23:45 10/17/23 00:21 Ns IV 10/17/23 00:45 999 mls/hr .Q1H1M MARLENE Administration Iohexol 85 ml 10/17/23 00:11 10/17/23 00:11 Iohexol 350 Mg/Ml 100 Ml Infus..Btl IV 10/17/23 00:12 85 ml ONCE ONE Administration Discharge Plan Discharge Clinical Impression: Urinary tract infection Patient Disposition: Home, Self-Care Instructions: Urinary Tract Infection in Older Adults (ED) Additional Instructions: Complete the entire course of antibiotics as prescribed for treatment of urinary tract infection. CT scan did not show evidence of inflammation to the gallbladder, gallstones or inflammation to the pancreas. Use Zofran as needed for nausea. Return to emergency department with any new or worsening symptoms or concerns. Follow-up with your primary care doctor next week. Prescriptions: New cefuroxime axetil 250 mg tablet 250 mg PO BID Qty: 12 0RF No Action fenofibrate 160 mg tablet 160 mg PO QAM Qty: 30 11RF fluoxetine 20 mg capsule 20 mg PO DAILY 90 Days Qty: 90 1RF lisinopril 2.5 mg tablet 2.5 mg PO DAILY 90 Days Qty: 90 2RF omeprazole 40 mg capsule,delayed release(DR/EC) 40 mg PO DAILY 90 Days Qty: 90 2RF pioglitazone 45 mg tablet 45 mg PO DAILY 90 Days Qty: 90 2RF (DME) pen needle, diabetic [BD Ultra-Fine Short Pen Needle] 31 gauge x 5/16 needle See Rx Instructions .ROUTE .MEDSUPPLY Qty: 1200 0RF Rx Instructions: As directed Lantus Solostar U-100 Insulin 100 unit/mL (3 mL) insulin pen 30 unit subcut QAM Qty: 15 3RF metformin 1,000 mg tablet 500 mg PO BID 90 Days Qty: 90 2RF (DME) lancets [FreeStyle Lancets] 28 gauge misc See Rx Instructions .ROUTE .MEDSUPPLY Qty: 3 3RF Rx Instructions: As directed check blood sugars 3 times a day (DME) FreeStyle Lite Strips Strip See Rx Instructions .ROUTE .MEDSUPPLY Qty: 3 3RF Rx Instructions: As directed check the blood sugar 3 times a day glipizide 10 mg tablet PO gabapentin 100 mg capsule 100 mg PO TID atorvastatin 20 mg tablet 20 mg PO DAILY sucralfate 100 mg/mL suspension PO Referrals: Zoraida Guo DO [Primary Care Provider] - Print Language: Korean
[2023-10-17] MEDS: iohexoL 350 MG/ML 100 ML INFUS..BTL 85 ML IV (00:11)
[2023-10-17] MEDS: 0.9 % Sodium Chloride 1,000 ML 999 ML IV (00:21)
[2023-10-17] MEDS: cefTRIAXone sodium 1 GM in 0.9 % Sodium Chloride 50 ML IV (00:21)
[2023-10-17 01:46] VITALS: BP 159/70; PULSE 94; RESP 16; TEMP 36.7; O2SAT 98
[2023-10-17 02:09] VITALS: BP 159/70; PULSE 94; RESP 16; TEMP 36.6; O2SAT 98
== END 2023-10-17 01:53 | disposition home or self-care (01) ==
PROVIDERS: Physician Assistant Medical; Emergency Provider Emergency Medicine Emergency Medical Services; PCP Family Medicine
DX: N39.0 Urinary tract infection, site not specified (principal); R10.10 Upper abdominal pain, unspecified; R11.2 Nausea with vomiting, unspecified; Z03.818 Encounter for observation for suspected exposure to other biological agents ruled out; E11.9 Type 2 diabetes mellitus without complications; I10 Essential (primary) hypertension; E78.00 Pure hypercholesterolemia, unspecified; Z79.4 Long term (current) use of insulin; Z79.02 Long term (current) use of antithrombotics/antiplatelets; Z79.899 Other long term (current) drug therapy; Z79.84 Long term (current) use of oral hypoglycemic drugs
CPT/HCPCS: 0241U; 36415; 74177; 80053; 81001; 83690; 83735; 85025; 87086; 87088; 87186; 96374; 99284; J0696; Q9967

== ENCOUNTER 2024-08-10 09:12 | Outpatient (REF) | payer OTHER, SELFPAY ==
--- NOTE | ~2024-08-10 | MM_ITS ---
EXAMINATION: MM SCREENING DIGITAL BREAST TOMOSYNTHESIS, BILATERAL CLINICAL INFORMATION: Screening. Asymptomatic. COMPARISON: Mammography: Comparison is made with available priors TECHNIQUE: Digital breast mammography with tomosynthesis is performed in both the craniocaudal and mediolateral oblique views along with computer-aided detection (CAD). FINDINGS: The breasts are heterogeneously dense, which may obscure small masses (ACR BI-RADS breast composition Category c). Bilateral scattered asymmetries are stable. Benign coarse dystrophic calcification medial right breast posterior depth on CC view. There are no significant masses, abnormal calcifications, or other abnormalities. MM/MM tomosynthesis screening BI IMPRESSION: No mammographic evidence of malignancy. ASSESSMENT: BI-RADS BI-RADS 2 - Benign Findings RECOMMENDATION: Routine annual mammography screening. 1 year F/U This examination should not preclude the clinical evaluation of a suspicious palpable abnormality. This patient's information was entered into a reminder system with a target due date for their next mammogram. Electronically signed by: Aleisha Ortiz DO 08/15/2024 04:10 PM EDT
--- OUTSIDE RECORDS SUMMARY | 2024-08-10 10:00 | XMS_ITS | Clinical Summary ---
Author Organization [facility] ity Address [address] [place] [address] Care Team Providers Care Administrative Program Specialist Name Role Phone Unavailable Primary Care Provider Unavailabl e Social History Tobacco Use Types Packs/Day Years Used Date Smoking Tobacco: Never Assessed Comments Unknown Sex and Gender Information Value Date Recorded Sex Assigned at Not on file Legal Sex Female 4:57 AM EST Gender Identity Not on file Sexual Orientation Not on file Plan of Treatment Health Maintenance Due Date Last Done Comments Breast Cancer Screening 1960 DTaP,Tdap,and Td Vaccines (1 - Tdap) 02/10/1979 Cervical Cancer Screening: P ap Smear 02/10/1981 Pneumococcal Vaccine: 50+ Ye ars (1 of 1 - PCV) 02/10/2010 Zoster Vaccines (1 of 2) 02/10/2010 COVID-19 Vaccine ( - 2023-2 5 season) 2023 Influenza Vaccine (Season Ended) 2024 RSV Immunization Adult Patie nts (1 - 1-dose 75+ series) 02/10/2035 HIB Vaccines Aged Out No longer eligi ble based on patient's age to complete this topic HPV Vaccines Aged Out No longer eligi ble based on patient's age to complete this topic Hepatitis A Vaccines Aged Out No long er eligible based on patient's age to complete this topic Hepatitis B Vaccines Aged Out No long er eligible based on patient's age to complete this topic IPV Vaccines Aged Out No longer eligi ble based on patient's age to complete this topic MMR Vaccines Aged Out No longer eligi ble based on patient's age to complete this topic Meningococcal ACWY Vaccine Aged Out N o longer eligible based on patient's age to complete this topic Meningococcal B Vaccine Aged Out No l onger eligible based on patient's age to complete this topic Pneumococcal Vaccine: Pediat rics (0 to 5 Years) and At-Risk Patients (6 to 64 Years) Aged Out No longer eligible b ased on patient's age to complete this topic RSV Immunization Patients Un yajaira 20 months Aged Out No longer eligible b ased on patient's age to complete this topic Varicella Vaccines Aged Out No longer eligible based on patient's age to complete this topic
== END 2024-08-10 09:13 | disposition home or self-care (01) ==
LOC: HO.MAMMO 09:12
PROVIDERS: PCP Family Medicine; Visit Provider Family Medicine
DX: Z12.31 Encounter for screening mammogram for malignant neoplasm of breast (principal)
CPT/HCPCS: 77063; 77067

== ENCOUNTER → 2024-08-10 09:45 | Outpatient (BNV) | payer OTHER, SELFPAY | PROVIDERS: PCP Family Medicine; Visit Provider Internal Medicine | DX: Z12.31 Encounter for screening mammogram for malignant neoplasm of breast (principal) | CPT/HCPCS: 77063; 77067 ==

== ENCOUNTER 2025-02-15 09:09 | Outpatient (REF) | payer OTHER, SELFPAY ==
--- OUTSIDE RECORDS SUMMARY | 2025-02-14 11:45 | XMS_ITS | Encounter Summary ---
Author Organization [employer] Address [address] [place] [address] [address] [place] [address] Care Team Providers Care Coal Pulverizing Operator Name Role Phone Zoraida Guo DO Primary Care Provider [phone] Reason for Referral * Imaging (Routine) - Pending Review Specialty Diagnoses / Procedures Referred By Contac t Referred To Contact Cardiology Diagnoses Dizziness Procedures Transthoracic Echo (TTE) Complete Zoraida Guo DO [address], [place] Phone: tel: fax: [address] [address] Phone: tel: fax: Referral ID Status Reason Start Date Expiration Date Visits Requested Visits Authorized [id number] Pending Review Perform Procedure 02/14/2026 1 1 * Imaging (Routine) - Authorized Specialty Diagnoses / Procedures Referred By Contac t Referred To Contact Cardiology Diagnoses Dizziness Procedures Vascular US carotid artery duplex bilateral Zoraida Guo DO [address] [place], [place] Phone: tel: fax: [address] [address] Phone: tel: fax: Referral ID Status Reason Start Date Expiration Date Visits Requested Visits Authorized [id number] Authorized Perform Procedure 02/14/2026 1 1 * Imaging (Routine) - Pending Review Specialty Diagnoses / Procedures Referred By Markie last Referred To Contact Radiology Diagnoses Dizziness Procedures MR Brain w/o Contrast Zoraida Guo DO [address] [place], [place] Phone: tel: fax: [address] [address] Phone: tel: fax: Referral ID Status Reason Start Date Expiration Date V isits Requested Visits Authorized [id number] Pending Review 02/14/2025 02/14/2026 1 1 * Consultation (Routine) - Authorized Specialty Diagnoses / Procedures Referred By Markie last Referred To Contact Pharmacy Diagnoses Type 2 diabetes mellitus with microalbuminuria, with long-term current use of insulin (HCC) oZraida Guo DO [address] [place], [place] Phone: tel: fax: Referral ID Status Reason Start Date Expiration Date Visits Requested Visits Authorized [id number] Authorized Consult and Treat 02/14/2025 02/14/2026 6 6 * Imaging (Routine) - Authorized Specialty Diagnoses / Procedures Referred By Markie last Referred To Contact Cardiology Diagnoses Bilateral leg pain Procedures Vascular US lower extremity arterial duplex bilateral with WERNER Zoraida Guo DO [address] [place], [place] Phone: tel: fax: [address] [address] Phone: tel: fax: Referral ID Status Reason Start Date Expiration Date Visits Requested Visits Authorized [id number] Authorized Perform Procedure 02/14/2026 1 1 * Neurology (Routine) - Authorized Specialty Diagnoses / Procedures Referred By Contac t Referred To Contact Diagnoses Bilateral leg pain Procedures Nerve conduction test Zoraida Guo DO [address] [place] [address] Phone: tel: fax: [address] [phone] Phone: tel: fax: Referral ID Status Reason Start Date Expiration Date V isits Requested Visits Authorized [id number] Authorized 02/14/2025 02/14/2026 1 1 * Neurology (Routine) - Authorized Specialty Diagnoses / Procedures Referred By Contac t Referred To Contact Diagnoses Bilateral leg pain Procedures EMG Zoraida Guo DO [address] [place] [address] Phone: tel: fax: [address] [phone] Phone: tel: fax: Referral ID Status Reason Start Date Expiration Date V isits Requested Visits Authorized [id number] Authorized 02/14/2025 02/14/2026 1 1 Encounter Details Date Type Department Care Team (Late st Contact Info) Description 02/14/2025 11:45 AM EST Office Visit [facility] [address] [place] [address] Zoraida Guo DO [address] [place] [address] Chronic neck and back pain (Primary Dx); Type 2 diabetes mellitus with microalbuminuria, with long-term current use of insulin (HCC); Bone pain; Bilateral leg pain; Dizziness Social History Tobacco Use Types Packs/Day Years Used Date Smoking Tobacco: Never Smokeless Tobacco: Never Alcohol Answer Date Recorded Frequency of Alcohol Consumption Not on file 08/19/2023 Average Number of Drinks Not on file 024 Frequency of Binge Drinking Not on file 07/25 Score 0 08/19/2023 Depression Answer Date Recorded Patient Health Questionnaire-9 Score 0 08/19/2023 Patient Health Questionnaire-9 Score 0 08/19/2023 Last PHQ-9: Questionnaire Data Not on file 0 08/19/2023 Housing Stability Answer Date Recorded What is your housing situation today? I have kandace jane 08/19/[address] you li ve. Do you have problems with any of the following? None of the above 08/19/2023 Food Insecurity Answer Date Recorded Within the past 12 months, y ou worried that your food would run out before you got money to buy more: Sometimes True 2024 Within the past 12 months,th e food you bought just didn't last and you didn't have enough money to get more: Sometimes True 06/28/2024 Transportation Answer Date Recorded In the past 12 months, has l ack of transportation kept you from medical appts, meetings, work or from getting things needed for daily living? No 08/19/2023 Utilities Answer Date Recorded In the past 12 months, has t he electric, gas, oil or water company threatened to shut off services in your home? No 08/19/2023 Depression Answer Date Recorded Patient Health Questionnaire-2 Score 0 08/19/2023 Internet Access Answer Date Recorded Internet Access Q1 Yes 10/23/2023 Internet Access Q2 Not on file 10/23/2023 Comments No Sex and Gender Information Value Date Recorded Sex Assigned at Female 12/23/2021 10:15 AM EDT Legal Sex Female 10:15 AM EDT Gender Identity Choose not to disclose 10:15 AM EDT Sexual Orientation Choose not to disclose 2021 10:15 AM EDT documented as of this encounter Last Filed Vital Signs Vital Sign Reading Time Taken Comments Blood Pressure 128/70 02/14/2025 12:26 PM EST Pulse 71 02/14/2025 12:26 PM EST Temperature 36.9 C (98.4 F) 02/14/2025 12:26 PM EST Respiratory Rate 21 02/14/2025 12:26 PM EST Oxygen Saturation 100% 02/14/2025 12:26 PM EST Inhaled Oxygen Concentration - - Weight 59.9 kg (132 lb) 02/14/2025 12:26 PM EST Height 152.4 cm (5') 02/14/2025 12:26 PM EST Body Mass Index 25.78 02/14/2025 12:26 PM EST documented in this encounter Plan of Treatment Scheduled Orders Name Type Priority Associated Diagnoses Order Schedule XR Cervical Spine 2-3 Views Imaging Routine Chronic neck and back pain Expected: 02/14/2025, Expires: 02/14/2026 XR Lumbar Spine 2-3 Views Imaging Routine Chronic neck and back pain Expected: 02/14/2025, Expires: 02/14/2026 T4, Free Lab Routine Bone pain Expected: 02/14/2025 (Approximate), Expires: 02/14/2026 Vitamin D, 25-Hydroxy, Total, Immunoassay Lab Routine Bone pain Expected: 02/14/2025 (Approximate), Expires: 02/14/2026 Lipid Panel, Standard Lab Routine Bone pain Expected: 02/14/2025 (Approximate), Expires: 02/14/2026 TSH Lab Routine Bone pain Expected: 02/14/2025 (Approximate), Expires: 02/14/2026 Hepatic Function Panel Lab Routine Bone pain Expected: 02/14/2025 (Approximate), Expires: 02/14/2026 Hemoglobin A1c Lab Routine Bone pain Expected: 02/14/2025 (Approximate), Expires: 02/14/2026 Basic Metabolic Panel Lab Routine Bone pain Expected: 02/14/2025 (Approximate), Expires: 02/14/2026 CBC Lab Routine Bone pain Expected: 02/14/2025, Expires: 02/14/2026 Albumin, Random Urine W/Creatinine Lab Routine Bone pain Expected: 02/14/2025 (Approximate), Expires: 02/14/2026 MARI Screen,IFA, with Reflex to Titer and Pattern Lab Routine Bone pain Expected: 02/14/2025 (Approximate), Expires: 02/14/2026 Lyme Disease Ab with Reflex to Blot (IgG, IgM) Lab Routine Bone pain Expected: 02/14/2025, Expires: 02/14/2026 Rheumatoid Factor Lab Routine Bone pain Expected: 02/14/2025, Expires: 02/14/2026 Sed Rate by Modified [place] Lab Routine Bone pain Expected: 02/14/2025, Expires: 02/14/2026 C-reactive Protein Lab Routine Bone pain Expected: 02/14/2025 (Approximate), Expires: 02/14/2026 EMG Neurology Routine Bilateral leg pain Expected: 02/14/2025 (Approximate), Expires: 02/14/2026 Nerve conduction test Neurology Routine Bilateral leg pain Expected: 02/14/2025 (Approximate), Expires: 02/14/2026 MR Brain w/o Contrast Imaging Routine Dizziness Expected: 02/14/2025, Expires: 02/14/2026 Transthoracic Echo (TTE) Complete Echocardiography Routine Dizziness Expected: 02/14/2025 (Approximate), Expires: 02/14/2027 Scheduled Referrals Name Type Priority Associated Diagnoses Orde r Schedule Referral to Pharmacy CDTM Outpatient Referral Routine Type 2 diabetes mellitus with microalbuminuria, with long-term current use of insulin (HCC) Ordered: 02/14/2025 documented as of this encounter Goals Goal Patient Goal Type Associated Problems Recent Progress Patient-Stated? Author Hemoglobin A1c < 7 Result Component 11.8(02/15/20 25 12:30 PM EST) No Gopi Brock, PharmLizbeth Record your blood sugar as directed Result Component No Raisa Carpenter PharmD Note: Use CGM, ensuring sensor is scanned at least once every 8 hours to capture 24H data. Check BG manually, as directed. Help patients manage their type 2 diabetes Care Plan Help patients manage their type 2 diabetes No Tino Rizvi Weekly blood pressure task Care Plan Weekly blood pressure task No Tino Rizvi Help patients manage their type 2 diabetes Care Plan Help patients manage their type 2 diabetes No Tino Rizvi Patient has chronic kidney disease Care Plan Patient has chronic kidney disease No Tino Rizvi Help patients manage their type 2 diabetes Care Plan Help patients manage their type 2 diabetes No Tino Rizvi Patient has diabetic neuropathy Care Plan Patient has diabetic neuropathy No Tino Rizvi Weekly blood pressure task Care Plan Weekly blood pressure task No Tino Rizvi Weekly blood pressure task Care Plan Weekly blood pressure task No Tino Rizvi Patient has chronic kidney disease Care Plan Patient has chronic kidney disease No Tino Rizvi Patient has chronic kidney disease Care Plan Patient has chronic kidney disease No Tino Rizvi Patient has diabetic neuropathy Care Plan Patient has diabetic neuropathy No Tino Rizvi Patient has diabetic neuropathy Care Plan Patient has diabetic neuropathy No Tino Rizvi Weekly blood pressure task Care Plan Weekly blood pressure task No Tatiana Laureano [place] Weekly blood pressure task Care Plan Weekly blood pressure task No Tatiana Laureano [place] Weekly blood pressure task Care Plan Weekly blood pressure task No Tatiana Laureano [place] Patient has chronic kidney disease Care Plan Patient has chronic kidney disease No Tatiana Laureano [place] Patient has chronic kidney disease Care Plan Patient has chronic kidney disease No Tatiana Laureano [place] Patient has chronic kidney disease Care Plan Patient has chronic kidney disease No Tatiana Laureano [place] Patient has diabetic neuropathy Care Plan Patient has diabetic neuropathy No Tatiana Laureano [place] Patient has diabetic neuropathy Care Plan Patient has diabetic neuropathy No Tatiana Laureano [place] Patient has diabetic neuropathy Care Plan Patient has diabetic neuropathy No Tatiana Laureano [place] Weekly blood pressure task Care Plan Weekly blood pressure task No Duc King Weekly blood pressure task Care Plan Weekly blood pressure task No Duc King Weekly blood pressure task Care Plan Weekly blood pressure task No Duc King Patient has chronic kidney disease Care Plan Patient has chronic kidney disease No Dcu King Patient has chronic kidney disease Care Plan Patient has chronic kidney disease No Duc King Patient has chronic kidney disease Care Plan Patient has chronic kidney disease No Duc King Patient has diabetic neuropathy Care Plan Patient has diabetic neuropathy No Duc King Patient has diabetic neuropathy Care Plan Patient has diabetic neuropathy No Duc King Patient has diabetic neuropathy Care Plan Patient has diabetic neuropathy No Duc King Weekly blood pressure task Care Plan Weekly blood pressure task No Tatiana Laureano [place] Weekly blood pressure task Care Plan Weekly blood pressure task No Tatiana Laureano [place] Weekly blood pressure task Care Plan Weekly blood pressure task No Tatiana Laureano [place] Patient has chronic kidney disease Care Plan Patient has chronic kidney disease No Tatiana Laureano [place] Patient has chronic kidney disease Care Plan Patient has chronic kidney disease No Tatiana Laureano [place] Patient has chronic kidney disease Care Plan Patient has chronic kidney disease No Tatiana Laureano [place] Patient has diabetic neuropathy Care Plan Patient has diabetic neuropathy No Tatiana Laureano [place] Patient has diabetic neuropathy Care Plan Patient has diabetic neuropathy No Tatiana Laureano [place] Patient has diabetic neuropathy Care Plan Patient has diabetic neuropathy No Tatiana Laureano [place] Weekly blood pressure task Care Plan Weekly blood pressure task No Tatiana Laureano [place] Weekly blood pressure task Care Plan Weekly blood pressure task No Tatinaa Laureano MA Weekly blood pressure task Care Plan Weekly blood pressure task No Tatiana Lauerano [place] Patient has chronic kidney disease Care Plan Patient has chronic kidney disease No Tatiana Laureano [place] Patient has chronic kidney disease Care Plan Patient has chronic kidney disease No Tatiana Laureano [place] Patient has chronic kidney disease Care Plan Patient has chronic kidney disease No Tatiana Laureano [place] Patient has diabetic neuropathy Care Plan Patient has diabetic neuropathy No Tatiana Laureano [place] Patient has diabetic neuropathy Care Plan Patient has diabetic neuropathy No Tatiana Laureano [place] Patient has diabetic neuropathy Care Plan Patient has diabetic neuropathy No Tatiana Laureano [place] documented as of this encounter Procedures Procedure Name Priority Date/Time Associated Diagnosis Comments POCT GLYCATED HEMOGLOBIN, TOTAL Routine 02/14/2025 12:30 PM EST Type 2 diabetes mellitus with microalbuminuria, with long-term current use of insulin (HCC) POCT GLUCOSE ([id number]) Routine 02/14/2025 12:29 PM EST Type 2 diabetes mellitus with microalbuminuria, with long-term current use of insulin (HCC) documented in this encounter Results * (ABNORMAL) POCT Hgb A1c (02/14/2025 12:30 PM EST) Hemoglobin A1C 11.8(A) 4.0 - 5.7 % QC Media Lot # [id number] Lot# Expiration Date , Blood 02/14/2025 12:3 0 PM EST Zoraida Sari DO POINT OF CARE TEST ENTER/AYO T ORDERABLES Final Result * (ABNORMAL) POCT Glucose (02/14/2025 12:29 PM EST) Pathologist [facility] Glucose Blood, POC 272(A) 60 - 200 mg/dL QC Media Lot # [id number] Lot# Expiration Date 3,026 Blood Capillary blood specimen / Unknown 02/14/2025 12:29 PM EST Zoraida Jurlink DO POINT OF CARE TEST ENTER/AYO T ORDERABLES Final Result documented in this encounter Visit Diagnoses Diagnosis Chronic neck and back pain- Primary Type 2 diabetes mellitus with microalbuminuria, with long-term current use of insulin ([facility]) Bone pain Disorder of bone and cartilage, unspecified Bilateral leg pain Pain in soft tissues of limb Dizziness Dizziness and giddiness documented in this encounter Additional Health Concerns Active Problems Noted Date Diagnosed Date Help patients manage their type 2 diabetes 02/07 Weekly blood pressure task 02/07/2025 Help patients manage their type 2 diabetes 02/07 Patient has chronic kidney disease 02/07/2025 Help patients manage their type 2 diabetes 02/07 Patient has diabetic neuropathy 02/07/2025 Weekly blood pressure task 02/07/2025 Weekly blood pressure task 02/07/2025 Patient has chronic kidney disease 02/07/2025 Patient has chronic kidney disease 02/07/2025 Patient has diabetic neuropathy 02/07/2025 Patient has diabetic neuropathy 02/07/2025 Weekly blood pressure task 02/09/2025 Weekly blood pressure task 02/09/2025 Weekly blood pressure task 02/09/2025 Patient has chronic kidney disease 02/09/2025 Patient has chronic kidney disease 02/09/2025 Patient has chronic kidney disease 02/09/2025 Patient has diabetic neuropathy 02/09/2025 Patient has diabetic neuropathy 02/09/2025 Patient has diabetic neuropathy 02/09/2025 Weekly blood pressure task 02/10/2025 Weekly blood pressure task 02/10/2025 Weekly blood pressure task 02/10/2025 Patient has chronic kidney disease 02/10/2025 Patient has chronic kidney disease 02/10/2025 Patient has chronic kidney disease 02/10/2025 Patient has diabetic neuropathy 02/10/2025 Patient has diabetic neuropathy 02/10/2025 Patient has diabetic neuropathy 02/10/2025 Weekly blood pressure task 02/13/2025 Weekly blood pressure task 02/13/2025 Weekly blood pressure task 02/13/2025 Patient has chronic kidney disease 02/13/2025 Patient has chronic kidney disease 02/13/2025 Patient has chronic kidney disease 02/13/2025 Patient has diabetic neuropathy 02/13/2025 Patient has diabetic neuropathy 02/13/2025 Patient has diabetic neuropathy 02/13/2025 Weekly blood pressure task 02/13/2025 Weekly blood pressure task 02/13/2025 Weekly blood pressure task 02/13/2025 Patient has chronic kidney disease 02/13/2025 Patient has chronic kidney disease 02/13/2025 Patient has chronic kidney disease 02/13/2025 Patient has diabetic neuropathy 02/13/2025 Patient has diabetic neuropathy 02/13/2025 Patient has diabetic neuropathy 02/13/2025 Assessment Noted Time PHQ-9 Depression Total Score: 0 08/19/19 24 12:27 PM EDT documented as of this encounter Care Teams Coal Pulverizing Operator Relationship Specialty Start Date End Date Zoraida Guo DO [address] [place] [id number] PCP - General Family Medicine 02/11/21 documented as of this encounter
--- NOTE | ~2025-02-15 | XR_ITS ---
EXAMINATION: XR LUMBOSACRAL SPINE CLINICAL INFORMATION: diffuse arm and leg pain COMPARISON: None available. TECHNIQUE: Three views of the lumbosacral spine. FINDINGS: There is normal lumbar lordosis. Vertebral body heights are maintained. No evidence of acute compression fracture. Mild anterolisthesis of L5-S1, unchanged. Disc space narrowing at T12-L1. Multilevel endplate spurring. Facet degeneration in the lower lumbar spine. No suspicious bony lesion. Vascular calcifications. SI joints are symmetric. 2 small calcifications in the right pelvis, probable phleboliths. Symphysis pubis degeneration. XR/XR lumbar spine 2-3V IMPRESSION: No radiographic evidence of acute osseous findings Lumbar spondylosis as above Electronically signed by: Alex Awad MD 02/15/2025 09:56 AM LEO
--- NOTE | ~2025-02-15 | XR_ITS ---
EXAMINATION: XR CERVICAL SPINE CLINICAL INFORMATION: PAIN COMPARISON: None available. TECHNIQUE: 3 views of the cervical spine were obtained. FINDINGS: No prevertebral soft tissue swelling. No compression fractures or subluxations are identified. Alignment is maintained at the atlanto-axial articulation. Mild C3-4 disc degeneration. Anterior endplate osteophyte of C2. Multilevel facet degeneration... Lung apices are clear. XR/XR cervical spine 3V IMPRESSION: No acute findings. Cervical spondylosis. Electronically signed by: Alex Awad MD 02/15/2025 09:52 AM EST
--- OUTSIDE RECORDS SUMMARY | 2025-02-15 09:13 | XMS_ITS | Clinical Summary ---
Author Organization [employer] Address [address] [place] [address] 7[address] [place] [address] Care Team Providers Care Interactive Media Project Manager Name Role Phone SariLindsayZoraida Primary Care Provider [phone] Allergies No known active allergies Medications Continuous Blood Gluc Safety Teacher (FreeStyle Girma 2 [place]) device Use to check blood sugar at least every 8 hours 1 each 023 Active glucose 4 g chewable tabletIndicati ons: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, with long-term current use of insulin (HCC) Chew 4 tablets (16 g) as needed for low blood sugar < 70 mg/dL. 20 tablet 5 024 Active clotrimazole (Lotrimin) 1 % cream Apply topically if needed in the morning and at bedtime (nail thickening). 60 g 3 024 Active triamcinolone (Kenalog) 0.1 % ointment Apply topically if needed in the morning and at bedtime for rash. 30 g 1 024 Active Alcohol Swabs (Alcohol Prep) 70 % pads USE THREE TIMES DAILY 100 each 11 025 Active Continuous Glucose Sensor (FreeStyle Girma 2 Sensor) [facility] USE DIRECTED TO TEST BLOOD SUGAR EVERY 8 HOURS CHANGE EVERY 14 DAYS 2 each 02/15/20 25 11:23 AM EST 025 Active metFORMIN (Glucophage) 1000 MG tablet TAKE 1 TABLET BY MOUTH TWICE DAILY IN THE MORNING AND IN THE EVENING WITH MEALS 180 tablet 1 025 Active fenofibrate (Triglide) 160 MG tabletIndicati ons:Hypertrigl yceridemia TAKE 1 TABLET BY MOUTH EVERY MORNING 30 tablet 5 02/15/20 25 11:23 AM EST 025 Active FLUoxetine (PROzac) 20 MG capsuleIndicat ions:PTSD (post-traumati c stress disorder) TAKE 1 CAPSULE BY MOUTH EVERY MORNING 30 capsule 5 02/15/20 25 11:23 AM EST 025 Active melatonin 5 MG tablet TAKE 2 TABLETS BY MOUTH EVERY DAY AT BEDTIME 60 tablet 5 02/15/20 11:23 AM EST 025 Active lisinopril 2.5 MG tabletIndicati ons:Hypertensi on, unspecified type TAKE 1 TABLET BY MOUTH EVERY MORNING 90 tablet 1 02/15/20 11:23 AM EST 025 Active BD Pen Needle Anabell Ultrafine 32G X 4 MM misc USE DIRECTED EVERY DAY WITH INSULIN 100 each 3 025 Active glucose blood (FreeStyle Precision Otto Test) test stripIndicatio ns: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, with long-term current use of insulin (HCC) USE DIRECTED TO TEST BLOOD SUGAR THREE TIMES DAILY 100 strip 02/15/20 11:23 AM EST 025 Active TRUEplus Lancets 33G miscIndication s: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 Do not crush, chew, or split. 60 tablet 1 025 2025 Active baclofen (Lioresal) 10 MG tablet Take 1 tablet (10 mg) by mouth if needed in the morning, at noon, and at bedtime for muscle spasms. 60 tablet 1 2025 Active Diclofenac Sodium 1 % gel Apply 2 g topically if needed in the morning, at noon, in the evening, and at bedtime (pain). 150 g 3 Active insulin glargine (Lantus SoloStar) 100 UNIT/ML penIndications :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, with long-term current use of insulin (HCC) INJECT 30 UNITS SUBCUTANEOUSLY EVERY DAY 15 mL 3 Active Tirzepatide (Mounjaro) 5 MG/0.5ML solution auto-injectorI ndications:Typ e 2 diabetes mellitus with microalbuminur ia, with long-term current use of insulin (HCC) Inject 5 mg under the skin 1 (one) time per week. 2 mL 3 Active atorvastatin (Lipitor) 40 MG tablet Take 1 tablet (40 mg) by mouth Once per day. 30 tablet 11 01/18/20 12:06 PM EST 2024 Discontinued insulin glargine (Lantus SoloStar) 100 UNIT/ML penIndications :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, with long-term current use of insulin (HCC) INJECT 10 UNITS SUBCUTANEOUSLY EVERY DAY 15 mL 5 01/18/20 12:06 PM EST 2024 Discontinued(R eorder (will not trigger notification to Pharmacy)) Trulicity 3 MG/0.5ML solution auto-injector INJECT ONE PEN (= 3MG) SUBCUTANEOUSLY ONCE A WEEK DIRECTED 2 mL 3 01/18/20 25 12:06 PM EST 2024 Discontinued gabapentin (Neurontin) 300 MG capsule TAKE 1 CAPSULE BY MOUTH THREE TIMES DAILY IN THE MORNING, EVENING, AND BEDTIME 90 capsule 3 01/18/20 12:06 PM EST 2024 Discontinued Trulicity 3 MG/0.5ML solution auto-injector INJECT ONE PEN (= 3MG) SUBCUTANEOUSLY ONCE A WEEK DIRECTED 2 mL 3 02/15/20 25 11:23 AM EST 2024 Discontinued Active Problems Problem Noted Date Diagnosed Date Hypertension 07/02/2024 Anxiety and depression 07/02/2024 Hypercholesterolemia 07/02/2024 Tubular adenoma of colon 07/02/2024 Obesity (BMI 30-39.9) 07/02/2024 Constipation 07/02/2024 Paresthesia of both feet 01/18/2024 Healthcare maintenance 01/18/2024 Diabetic peripheral neuropathy 06/10/2022 Diverticulosis 06/10/2022 Chronic gastroesophageal reflux disease 06/11/19 Hyperlipidemia 06/10/2022 Microalbuminuria 06/10/2022 Posttraumatic stress disorder 06/10/2022 Major depression, recurrent, chronic 06/10/2022 Type 2 diabetes mellitus 06/10/2022 Encounters Date Type Department Care Team Description 02/14/2025 11:45 AM EST Office Visit [facility] [address] [place] [phone] Zoraida Guo DO Chronic neck and back pain (Primary Dx); Type 2 diabetes mellitus with microalbuminuria, with long-term current use of insulin (HCC); Bone pain; Bilateral leg pain; Dizziness 02/14/2025 Travel 02/13/2025 Telephone [facility] [address] [place] [phone] Zoraida Guo DO 02/10/2025 Telephone [facility] [address] [place] [address] Zoraida Guo DO Appointment Request 02/09/2025 Telephone [facility] [address] [place] [phone] Zoraida Guo DO Chart Prep 02/07/[address] [phone] Zoraida Guo DO Nurse Triage 02/01/2025 Refill [facility] [address] [place] [address] Zoraida Guo DO 01/30/[address] [address] Zoraida Guo DO from Last 3 Months Immunizations Immunization Administration Dates Next Due Hep B, Adolescent or Pediatric 06/16/1996 Hep B, adult 08/19/2023,06/10/2022,05/21/2021 Influenza injectable quadriv alent IIV4 with preservative 12/21/2017 Influenza injectable quadriv alent preservative free 2021 MMR 06/16/1996 Pneumococcal Polysaccharide PPSV23 04/23/2011 RSV Bivalent 01/18/2024 TD (adult), 2 Lf tetanus tox oid, preservative free, adsorbed 06/16/1996 Tdap 01/18/2024,03/11/2013 Zoster, Recombinant 2021,11/12/2020 Social History Tobacco Use Types Packs/Day Years Used Date Smoking Tobacco: Never Smokeless Tobacco: Never Tobacco Cessation:Counseling Given: Not Answered Alcohol Answer Date Recorded Frequency of Alcohol [...] not to disclose 2021 10:15 AM EDT Last Filed Vital Signs Vital Sign Reading [...] Mass Index 25.78 02/14/2025 12:26 PM EST Plan of Treatment Health Maintenance Due Date Last Done Comments CT Colonography 1960 Colonoscopy 1960 Colorectal Cancer Screening 1960 FIT DNA/Cologuard 1960 FIT 1960 FOBT 1960 Sigmoidoscopy 1960 Diabetes: Foot Exam 02/10/1970 Eye Exam 02/10/1970 Alcohol/Substance Use Screening 1972 Pneumococcal Vaccine: 50+ Years (2 of 2 - PCV) 04/22/2012 04/23/2011 Depression Screening 08/18/2024 08/19/2023, 08/19/19 24 Diabetes: Urine Protein Screening 08/20/2024 08/21/2023, 06/10/2022, 2021 Lipid Panel 08/20/2024 08/21/2023, 04/09/2022, 2021 COVID-19 Vaccine ( season) 2024 05/21/2021, 06/28/2020, 05/31/2020 Influenza Vaccine (#1) 2024 2021, 2017 Diabetes: Hemoglobin A1C 05/15/2025 025, 07/01/2024, 01/18/2024, Additional history exists SDOH Screening 06/28/2025 06/28/2024 Mammogram 08/10/2025 08/10/2024, 06/06/2023, 07/22/2022, Additional history exists Tobacco Screening 02/14/2026 02/14/2025 Cervical Cancer Screening 09/10/2026 Pap Smear 09/10/2026 09/11/2023 HPV/Cotest 09/10/2028 09/11/2023 DTaP/Tdap/Td Vaccines (3 - Td or Tdap) 01/17/2034 01/18/2024, 03/11/2013, 06/16/1996 Zoster Vaccines Completed 2021, 11/12/2020 Hepatitis B Vaccines Completed 08/19/2023, 06/10/2022, 05/21/2021, Additional history exists Hepatitis C Screening Completed 08/21/2023 , 06/10/2022, 2021 RSV Patients and Patients Aged 60 years or older Completed 01/18/2024 HIB Vaccines Aged Out No longer eligi [...] patient's age to complete this topic Meningococcal Vaccine Aged Out No trudi mayra eligible based on patient's age to complete this topic RSV under 20 months Aged Out No longe r eligible based on patient's age to complete this topic Rotavirus Vaccines Aged Out No longer eligible based on patient's age to complete this topic Goals Goal Patient Goal Type Associated Problems Recent Progress Patient-Stated? Author Hemoglobin A1c < 7 Result Component 11.8(02/15/20 12:30 PM EST) No Gopi Brock PharmD Record your blood sugar as directed Result [...] has diabetic neuropathy No Tatiana Laureano MA Procedures Procedure Name Priority Date/Time Associated Diagnosis Comments POCT GLYCATED HEMOGLOBIN, TOTAL Routine 02/14/2025 12:30 PM EST Type 2 diabetes mellitus with microalbuminuria, with long-term current use of insulin (HCC) POCT GLUCOSE (CPT-20408) Routine 02/14/2025 12:29 PM EST Type 2 diabetes mellitus with microalbuminuria, with long-term current use of insulin (HCC) BI MAMMOGRAM SCREENING TOMOSYNTHESIS BILATERAL Routine 08/10/2024 9:30 AM EDT THINPREP IMAGING PAP AND HPV MRNA E6/E7 WITH REFLEX TO HPV 16,18/45 Routine 09/11/2023 11:49 AM EDT HEPATITIS C AB W/REFL TO HCV RNA, QN, PCR Routine 08/21/2023 9:20 AM EDT Type 2 diabetes mellitus with microalbuminuria, with long-term current use of insulin (CMS/HCC) Other hyperlipidemia Major depression, recurrent, chronic (CMS/HCC) Paresthesia of both feet Vaginal itching Onychomycosis Healthcare maintenance ALBUMIN, RANDOM URINE W/CREATININE Routine 08/21/2023 9:20 AM EDT Type 2 diabetes mellitus with microalbuminuria, with long-term current use of insulin (CMS/HCC) Other hyperlipidemia Major depression, recurrent, chronic (CMS/HCC) Paresthesia of both feet Vaginal itching Onychomycosis Healthcare maintenance LIPID PANEL, STANDARD Routine 08/21/2023 9:20 AM EDT Type 2 diabetes mellitus with microalbuminuria, with long-term current use of insulin (CMS/HCC) Other hyperlipidemia Major depression, recurrent, chronic (CMS/HCC) Paresthesia of both feet Vaginal itching Onychomycosis Healthcare maintenance from Last 3 Months or Most Recently Relevant to Health Maintenance Results * (ABNORMAL) POCT Hgb A1c (02/14/2025 12:30 PM EST) Hemoglobin A1C 11.8(A) 4.0 - 5.7 % QC Media Lot # [id number] Lot# Expiration Date [id number] Blood 02/14/2025 12:3 0 PM EST Zoraida Guo DO POINT OF CARE TEST ENTER/AYO T ORDERABLES Final Result * (ABNORMAL) POCT Glucose (02/14/2025 12:29 PM EST) Glucose Blood, POC 272(A) 60 - 200 mg/dL QC Media Lot # [id number] Lot# Expiration Date [id number] Blood Capillary blood specimen / Unknown 02/14/2025 12:29 PM EST Zoraida Sari SCHAFFER POINT OF CARE TEST ENTER/AYO T ORDERABLES Final Result * BI Mammogram Screening Tomosynthesis Bilateral (08/10/2024 9:30 AM EDT) Anatomical Region Laterality Modality Breast Bilateral Mammography 08/10/2024 9:30 AM EDT Narrative 08/15/2024 4:13 PM EDT [address] [place] [address] Mammography Report Signed Patient: Nyasia Cruz MR#: [id number] : 1960 Acct:[id number] Age/Sex: 64 / F ADM Date: 08/10/24 Loc: HO.MAMMO Attending Dr: Zoraida Guo DO Ordering Physician: Zoraida Guo DO Results: 2B enign Findings Date of Service: 08/10/24 Follow Up: 1 Year From Orig inal Mammogram Procedure(s): MM tomosynthesis screening BI Accession Number(s): [id number] cc: Zoraida Guo DO EXAMINATION: MM SCREENING DIGITAL BREAST TOMOSYNTHESIS, BILATERAL CLINICAL INFORMATION: Screening. Asymptomatic. COMPARISON: Mammography: Comparison is made with available priors TECHNIQUE: Digital breast mammography with tomosynthesis is performed in both the craniocaudal and mediolateral oblique views along with computer-aided detection (CAD). FINDINGS: The breasts are heterogeneously dense, which may obscure small masses (ACR BI-RADS breast composition Category c). Bilateral scattered asymmetries are stable. Benign coarse dystrophic calcification medial right breast posterior depth on CC view. There are no significant masses, abnormal calcifications, or other abnormalities. MM/MM tomosynthesis screening BI IMPRESSION: No mammographic evidence of malignancy. ASSESSMENT: BI-RADS BI-RADS 2 - Benign Findings RECOMMENDATION: Routine annual mammography screening. 1 year F/U This examination should not preclude the clinical evaluation of a suspicious palpable abnormality. This patient's information was entered into a reminder system with a target due date for their next mammogram. Electronically signed by: Aleisha Ortiz DO 08/15/2024 04:10 PM EDT RP Dictated By: Aleisha Ortiz DO Signed By: <Electronically signed by Aleisha Ortiz DO in OV> 08/15/24 1610 DD/ 0930 TD/TT: 08/10/24 0952 Director Corporate: Procedure Note Donotuseinterpreter, Image - 08/15/2024 [facility] [address] [place] [address] Mammography Report Signed Patient: Lan Cruz#: [id number] : 1960Acct:[id number] Age/Sex: 64 / FADM Date: 08/10/24 Loc: HO.MAMMO Attending Dr: Zoraida Guo DO Ordering Physician: Zoraida Guoults: 2B enign Findings Date of Service: 08/10/24Follow Up: 1 Year From Orig inal Mammogram Procedure(s): MM tomosynthesis screening BI Accession Number(s): [id number] cc: Zoraida Guo DO EXAMINATION: MM SCREENING DIGITAL BREAST TOMOSYNTHESIS, BILATERAL CLINICAL INFORMATION: Screening. Asymptomatic. COMPARISON: Mammography: Comparison is made with available priors TECHNIQUE: Digital breast mammography with tomosynthesis is performed in both the craniocaudal and mediolateral oblique views along with computer-aided detection (CAD). FINDINGS: The breasts are heterogeneously dense, which may obscure small masses (ACR BI-RADS breast composition Category c). Bilateral scattered asymmetries are stable. Benign coarse dystrophic calcification medial right breast posterior depth on CC view. There are no significant masses, abnormal calcifications, or other abnormalities. MM/MM tomosynthesis screening BI IMPRESSION: No mammographic evidence of malignancy. ASSESSMENT: BI-RADS BI-RADS 2 - Benign Findings RECOMMENDATION: Routine annual mammography screening. 1 year F/U This examination should not preclude the clinical evaluation of a suspicious palpable abnormality. This patient's information was entered into a reminder system with a target due date for their next mammogram. Electronically signed by: Aleisha Ortiz DO 08/15/2024 04:10 PM EDT Dictated By: Aleisha Ortiz DO Signed By: <Electronically signed by Aleisha Ortiz DO in OV> 08/15/24 1610 DD/ 0930 TD/TT: 08/10/24 0952 Director Corporate: us Zoraida Guo DO IMG BI PROCEDURES Final Resu lt * ThinPrep Imaging Pap and HPV mRNA E6/E7 with Reflex to HPV 16,18/45 (09/11/2023 11:49 AM EDT) HPV 16 RNA TNP [facility] HPV 18/45 RNA [facility] HPV nRNA E6/E7 Not Detected Not Detected [facility] Comment:Methodology: Transcr iption-Mediated AmplificationThis assay detects E6/E7 viral messenger RNA (mRNA) from 14high-risk HPV types (16,18,31,33,35,39,45,51,52,56,58,59,66,68).Cervical sources are required for HPV testing.If a vaginal source from a patient who has had atotal hysterectomy with removal of cervix wassubmitted, please contact the testing laboratoryfor alternative testing options.For additional information, please refer [email or web address]/faq/[email or web address](This link if provided for information/educational purposes only.)THIS TEST WAS PERFORMED AT:[facility] [address] [id number] PEDERSON MD SOURCE: SEE NOTE [facility] Comment:Cervix Report Status: [facility] Clinical Information: SEE NOTE [facility] Comment:ROUTINE LMP: SEE NOTE [facility] Comment:NONE GIVEN Prev. PAP: SEE NOTE [facility] Comment:NONE GIVEN Prev. BX: SEE NOTE [facility] Comment:NONE GIVEN Statement Of Adequacy: SEE NOTE [facility] Comment:SATISFACTORY FOR SADIA LUATION General Categorization: [facility] Interpretation/Result: SEE NOTE [facility] Comment:Cytology Results: Ne gative for intraepitheliallesion or malignancy.Atrophic pattern; predominantly parabasal cells Cytology Comment SEE NOTE [facility] Comment:This Pap test has be en evaluated with computerassisted technology. Manager Of It: SEE NOTE [facility] Comment:ALS, CT(ASCP)CT scre ening location: [address] [address] Review Manager Of It: [facility] Pathologist [facility] PAP Infection [facility] See Note SEE NOTE [facility] Comment:EXPLANATORY NOTE:The Pap is a screening test for cervical cancer. It isnot a diagnostic test and is subject to false negativeand false positive results. It is most reliable when asatisfactory sample, regularly obtained, is submittedwith relevant clinical findings and history, and whenthe Pap result is evaluated along with historic andcurrent clinical information. 09/11/2023 11:4 9 AM EDT 09/11/2023 4:35 PM EDT Narrative [facility] - 09/16/2023 5:50 PM EDT SEE SCANNED RESULTS IN EMRROUTINECERVIX us Zoraida Guo DO LAB PATHOLOGY ORDERABLES Fin al Result [facility] [address] [place] [phone] * (ABNORMAL) Albumin, Random Urine W/Creatinine (08/21/2023 9:20 AM EDT) Creatinine, Urine 50.58 mg/dL [facility] Microalbumin Urine 28.0 mg/L [facility] Microalbum Creatinine Ratio Ur 55.3(H) <30 ug/mg cr [facility] Comment:Albumin/Creatinine R atio Reference Ranges: Normal: < 30 ug/mg creatinine Microalbuminuria: 30 - 300 ug/mg creatinineClinical Albuminuria: > 300 ug/mg creatinine Urine (Urine, Random) 08/21/2023 9:20 AM EDT 08/21/2023 11:10 AM EDT [facility] URINE ORDERABLES Final R esult Performing Organization Address [facility] Co de Phone Number [facility] [address] [place] [phone] * Hepatitis C Antibody with Reflex to HCV, RNA, Quantitative, Real-Time PCR (08/21/2023 9:20 AM EDT) Hepatitis C Antibody Nonreactive Nonreactive [facility] Comment:Antibodies to HCV no t detected; does not exclude early acuteHCV infection. Blood Venous blood specimen / Unknown 08/21/2023 9:20 AM EDT 08/21/2023 11:11 AM EDT us Zoraida Guo LAB BLOOD ORDERABLES Final R esult Performing Organization Address [facility]/ZIP Co de Phone Number [facility] [address] [place] [address] [phone] * (ABNORMAL) Lipid Panel, Standard (08/21/2023 9:20 AM EDT) Triglycerides 274(H) <150 mg/dL [facility] Comment:Desirable Triglyceri de: less than 150 mg/dLBorderline High Triglyceride 150-199 mg/dLHigh Triglyceride: 200-499 mg/dLVery High Triglyceride: greater than or equal to 5OO mg/dL Cholesterol 227(H) <200 mg/dL [facility] Comment:Desirable Cholestero l: less than 200 mg/dLBorderline High Cholesterol: 200-239 mg/dLHigh Cholesterol: greater than 239 mg/dL LDL Cholesterol Calculated 126(H) <100 mg/dL [facility] Comment:Desirable LDL: less than 100 mg/dLNear Optimal/Above Optimal LDL: 110- 129 mg/dLBorderline High LDL: 130-159 mg/dLHigh LDL: 160-189 mg/dLVery High LDL: greater than or equal to 190 mg/dL HDL Cholesterol 47 >40 mg/dL [facility] Comment:Desirable HDL: great er than 40 mg/dL Note: This HDL assay may give artificially low results in patients with liver disease. Blood Venous blood specimen / Unknown 08/21/2023 9:20 AM EDT 08/21/2023 11:11 AM EDT us Zoraida Guo DO LAB BLOOD ORDERABLES Final R esult [facility] [address] [place] [phone] from Last 3 Months or Most Recently Relevant to Health Maintenance Additional Health Concerns Active Problems Noted Date [...] neuropathy 02/13/2025 Patient has diabetic neuropathy 02/13/2025 Insurance [facility] < 65 [place] [id number] Care Teams Interactive Media Project Manager Relationship Specialty Start Date End Date Zoraida Guo DO [address] [place] [phone] PCP - General Family Medicine 02/11/21
--- OUTSIDE RECORDS SUMMARY | 2025-02-15 09:13 | XMS_ITS | Encounter Summary ---
Author Organization [employer] Address [address] [facility] [address] [place] [address] Care Team Providers Care Gas Welding Equipment Mechanic Name Role Phone Zoraida Guo DO Primary Care Provider + [phone] Reason for Visit * Reason Onset Date Comments Appointment Request 02/10/2025 Encounter Details Date Type Department Care Team ([facility] Contact Info) Description 02/10/2025 Telephone [facility] [address], [place] [phone] Zoraida Guo DO [address] [place], [place] [phone] Appointment Request Social History Tobacco Use Types Packs/Day Years [...] Access Q2 Not on file 10/23/2023 Comments Unknown Sex and Gender Information Value Date Recorded Sex Assigned at Female 12/23/2021 10:15 AM EDT Legal Sex Female 10:15 AM EDT Gender Identity Choose not to disclose 10:15 AM EDT Sexual Orientation Choose not to disclose 2021 10:15 AM EDT documented as of this encounter Miscellaneous Notes * Telephone Encounter - Bebe Fontanez RN - 02/10/2025 12:58 PM EST TC placed to [phone] however number is OOS. TC placed to [phone] to r/s appointment for 02/14/25 at 11:45AM, patient agreed to appointment date and time. Patient to f/u PRN. * Telephone Encounter - Duc Suazo - 02/10/2025 9:43 AM EST Tc from pt requesting a call back to [facility] onsite apt Contact pt at [phone] (chadian) documented in this encounter Plan of Treatment Not on file documented as of this encounter Goals Goal Patient Goal Type Associated Problems Recent Progress Patient-Stated? Author Hemoglobin A1c < 7 Result Component 11.8(02/15/20 12:30 PM EST) No Gopi Brock, PharmD Record your blood sugar as directed Result Component No Puia, Raisa, PharmD Note: Use CGM, ensuring sensor is [...] Patient has diabetic neuropathy No Duc King documented as of this encounter Visit Diagnoses Not on filedocumented in this encounter Additional Health Concerns Active [...] neuropathy 02/10/2025 Patient has diabetic neuropathy 02/10/2025 Assessment Noted Time PHQ-9 Depression Total Score: 0 08/19/19 24 12:27 PM EDT documented as of this encounter Care Teams Gas Welding Equipment Mechanic Relationship Specialty Start Date End Date Zoraida Guo DO [address] [place] [address] PCP - General Family Medicine 02/11/21 documented as of this encounter
--- OUTSIDE RECORDS SUMMARY | 2025-02-15 09:13 | XMS_ITS | Encounter Summary ---
Author Organization [employer] Address [address] [facility] 7t [place] [address] Care Team Providers Care Miller Apprentice Name Role Phone Zoraida Guo DO Primary Care Provider + [phone] Reason for Visit * Reason Comments Med Refill Encounter Details Date Type Department Care Team ([facility] Contact Info) Description 03/07/2024 Refill [facility] [address] [place], [place] [phone] Zoraida Guo DO 230 [place], [place] [phone] PTSD (post-traumatic stress disorder) Social History Tobacco Use Types Packs/Day Years [...] before you got money to buy more: Never True 08/19/2023 Within the past 12 months,th e food you bought just didn't last and you didn't have enough money to get more: Never True Transportation Answer Date Recorded In the past [...] AM EDT documented as of this encounter Plan of Treatment Not on file documented as of this encounter Goals Goal Patient Goal Type Associated Problems Recent Progress Patient-Stated? Author Hemoglobin A1c < 7 Result Component 11.8(02/15/20 25 12:30 PM EST) No Gopi Brock PharmD Record your blood sugar as directed Result Component No Raisa Carpenter PharmD Note: Use CGM, ensuring sensor is scanned at least once every 8 hours to capture 24H data. Check BG manually, as directed. documented as of this encounter Visit Diagnoses Diagnosis PTSD (post-traumatic stress disorder) Posttraumatic stress disorder documented in this encounter Additional Health Concerns Assessment Noted Time PHQ-9 Depression Total Score: 0 08/19/19 24 12:27 PM EDT documented as of this encounter Care Teams Miller Apprentice Relationship Specialty Start Date End Date Zoraida Guo DO [address] [place] [phone] PCP - General Family Medicine 02/11/21 documented as of this encounter
--- OUTSIDE RECORDS SUMMARY | 2025-02-15 09:13 | XMS_ITS | Clinical Summary ---
Author Organization [facility] ity Address [address] [place] [address] Care Team Providers Care Hose Suspender Cutter Name Role Phone Unavailable Primary Care Provider [...] 02/10/2010 Zoster Vaccines (1 of 2) 02/10/2010 Depression Screening 02/24/2024 COVID-19 Vaccine (1 - 2024-2 6 season) 2024 Influenza Vaccine (#1) 2024 RSV Immunization Adult Patie nts (1 [...]
--- OUTSIDE RECORDS SUMMARY | 2025-02-15 09:13 | XMS_ITS | Encounter Summary ---
Author Organization [employer] Address 75 [facility] 7t [place] [address] Care Team Providers Care Biofuels Product Development Manager Name Role Phone SariZoraida Primary Care Provider [phone] Dellogono, Gopi PharmD Unavailable Unavail able Dellogono, Gopi PharmD Unavailable Unavail able Puia, Raisa PharmD Unavailable [phone] Encounter Details Date Type Department Care Team (Late st Contact Info) Description 03/18/2022 Orders Only [facility] MED[facility]INE [address] [place] [address] Marcelle Rodriges LPN Social History Tobacco Use Types Packs/Day Years [...] on file documented as of this encounter Procedures Procedure Name Priority Date/Time Associated Diagnosis Comments HEMATOXYLIN AND EOSIN STAIN Routine 04/29/2022 11:04 AM EST GLUCOSE, WHOLE BLOOD Routine 04/29/2022 10:39 AM EST GLUCOSE, WHOLE BLOOD Routine 04/29/2022 9:37 AM EST documented in this encounter Results * Hematoxylin and Eosin Stain (04/29/2022 11:04 AM EST) 04/29/2022 11:0 4 AM EST 04/29/2022 12:30 PM EST Tamie [facility] - 04/30/2022 12:59 PM EST ----- ------- Name: Nyasia Cruz Age/Sex: 62/F : 1960 Unit#: [id number] Attend Dr: Anna Sanchez MD Re04/29/22 Status: [facility] Location: [facility] Disch: ----- ------- SPEC : [id number] RECD: 04/29/22-1230 STATUS: REYNAElroy TADEOSarah NUM: [id number] NISREEN: 04/29/22-[address] [facility] DR: Anna Sanchez MD ENTERED: 04/29/22-1252 SP TYPE: Surgical OTHR DR: Zoraida Guo DO ORDERED: HE Stain/3, Gross Micro L4 Diagnosis Colon, ascending, polyp: Tubular adenoma; negative for high-grade dysplasia and carcinoma. Clinical History Pre-Op Dx: Screening Post-Op Dx: Colon polyp, diverticulosis, hemorrhoids Microscopic Description Microscopic sections reviewed. Material Received Ascending colon polyp Gross Description Received in formalin labeled Ascending colon polyp is a 0.5 cm. in greatest dimension, glistening, beach-pink, papular tissue fragment, which is submitted in toto in a single cassette labeled A. CEDS Copies To: Anna Sanchez MD [address] [place] [address] [place] [address] Zoraida Guo DO 230 [place] [address] ----- ------- Signed (signature on file) Keke Arora 04/30/22 1259 ----- ------- END OF REPORT [facility] External Provider LAB BLO OD ORDERABLES Final Result Performing Organization Address [facility] Co de Phone Number [facility] [address] [place] [phone] * GLUCOSE, WHOLE BLOOD (04/29/2022 10:39 AM EST) [facility] Signature Glucose, Whole Blood 83 60 - 115 mg/dL [facility] Comment:METER #: [id number] 04/29/2022 10:3 9 AM EST 04/29/2022 10:49 AM EST [facility] External Provider LAB BLO OD ORDERABLES Final Result Performing Organization Address [facility] Co de Phone Number [facility] [address] [place] [phone] * GLUCOSE, WHOLE BLOOD (04/29/2022 9:37 AM EST) Glucose, Whole Blood 76 60 - 115 mg/dL [facility] Comment:METER #: [id number] 04/29/2022 9:37 AM EST 04/29/2022 10:04 AM EST us [facility] External Provider LAB BLO OD ORDERABLES Final Result [facility] [address] [place] [phone] [phone] documented in this encounter Visit Diagnoses Not on filedocumented in this encounter Care Teams Biofuels Product Development Manager Relationship Specialty Start Date End Date Zoraida Guo DO [address] [place] [address] PCP - General Family Medicine 02/11/21 Gopi Brock, PharmD [address] [place] [phone] Pharmacist Internal Medicine 07/02/22 08/26/22 Gopi Brock, PharmD [address] [place] [address] Pharmacist Internal Medicine 07/03/22 08/26/22 Raisa Carpenter PharmD [address] [place] [address] Pharmacist Internal Medicine 09/02/22 03/29/23 documented as of this encounter
--- OUTSIDE RECORDS SUMMARY | 2025-02-15 09:13 | XMS_ITS | Encounter Summary ---
Author Organization [employer] Address [address] [place] [address] 7t [place] [address] Care Team Providers Care Mental Health Tech Name Role Phone Zoraida Guo DO Primary Care Provider [phone] Dellogono, Gopi PharmD Unavailable Unavail able Dellogono, Gopi PharmD Unavailable Unavail able Puia, Raisa PharmD Unavailable Encounter Details Date Type Department Care Team (Late st Contact Info) Description 05/13/2022 Orders Only [facility] [address] [place] [address] Zoraida Kern LPN Social History Tobacco Use Types Packs/Day [...] on file documented as of this encounter Visit Diagnoses Not on filedocumented in this encounter Care Teams Mental Health Tech Relationship Specialty Start Date End Date Zoraida Guo DO [address] [place], [place] [phone] PCP - General Family Medicine 02/11/21 Dellogono, Gopi, PharmD [address] [place] [address] Pharmacist Internal Medicine 07/02/22 08/26/22 Dellogono, Gopi, PharmD [address] [place] [address] Pharmacist Internal Medicine 07/03/22 08/26/22 Raisa Carpenter, BoogieD [address] [place] [address] Pharmacist Internal Medicine 09/02/22 03/29/23 documented as of this encounter
--- OUTSIDE RECORDS SUMMARY | 2025-02-15 09:13 | XMS_ITS | Encounter Summary ---
Author Organization [employer] Address [address] [place] [address] 7 [place] [address] Care Team Providers Care Broacher Name Role Phone Halima Guofer Primary Care Provider [phone] Reason for Referral * Consultation (Routine) - Closed Specialty Diagnoses / Procedures Referred By Contac t Referred To Contact Pharmacy Diagnoses Type 2 diabetes mellitus (HCC) Cristiana Graves MD [address] [place] [address] Phone: tel: fax: Referral ID Status Reason Start Date Expiration Date V isits Requested Visits Authorized [id number] Closed Continuity of Care 07/04/2024 07/04/2025 6 6 Encounter Details Date Type Department Care Team ([facility] st Contact Info) Description 07/01/2024 Orders Only [facility] [address] [place], [place] [phone] Cristiana Graves MD [address] [place], [place] [phone] Type 2 diabetes mellitus (CMS/HCC) (Primary Dx) Social History Tobacco Use Types Packs/Day Years [...] as of this encounter Plan of Treatment Scheduled Referrals Name Type Priority Associated Diagnoses Orde r Schedule Referral to Pharmacy MT Outpatient Referral Routine Type 2 diabetes mellitus ([facility]) Ordered: 07/04/2024 documented as of this encounter Goals Goal [...] as of this encounter Visit Diagnoses Diagnosis Type 2 diabetes mellitus (HCC)- Primary documented in this encounter Additional Health Concerns Assessment Noted Time PHQ-9 Depression Total Score: 0 08/19/19 24 12:27 PM EDT documented as of this encounter Care Teams Broacher Relationship Specialty Start Date End Date Zoraida Guo DO [address] [place] [address] PCP - General Family Medicine 02/11/21 documented as of this encounter
--- OUTSIDE RECORDS SUMMARY | 2025-02-15 09:13 | XMS_ITS | Encounter Summary ---
Author Organization [employer] Address [address] [facility] 7t [place] [address] Care Team Providers Care Parachute Inspector Name Role Phone Zoraida Guo DO Primary Care Provider + [phone] Encounter Details Date Type Department Care Team ([facility] st Contact Info) Description 02/13/2025 Telephone [facility] [address] [place], [place] [phone] Zoraida Guo DO [address] [place], [place] [phone] Social History Tobacco Use Types Packs/Day Years [...] encounter Miscellaneous Notes * Telephone Encounter - Tatiana Laureano MA - 02/13/2025 2:26 PM EST error documented in this encounter Plan of Treatment [...] Patient has chronic kidney disease No Tino iRzvi Patient has chronic kidney disease Care Plan [...] Laureano [place] documented as of this encounter Visit Diagnoses [...] documented as of this encounter Care Teams Parachute Inspector Relationship Specialty Start Date End Date Zoraida Guo DO [address] [place] [phone] PCP - General Family Medicine 02/11/21 documented as of this encounter
--- OUTSIDE RECORDS SUMMARY | 2025-02-15 09:13 | XMS_ITS | Encounter Summary ---
Author Organization [employer] Address [address] [facility] 7t [place] [address] Care Team Providers Care Shampoo Person Name Role Phone DavidZoraida dejesus Primary Care Provider [phone] Encounter Details Date Type Department Care Team (Latest Contact Info) Description 02/14/2025 Travel Social History Tobacco Use Types Packs/Day Years [...] t he electric, gas, oil or water [employer] threatened to shut off services in your [...] documented as of this encounter Care Teams Shampoo Person Relationship Specialty Start Date End Date Zoraida Guo DO [address] [place] [phone] PCP - General Family Medicine 02/11/21 documented as of this encounter
[2025-02-15 11:11] LABS: Hematocrit 35.5 % (37.0-47.0); Hemoglobin 11.4 g/dl (12.0-16.0); Mean Corpuscular HGB Conc 32.1 g/dl (31.0-35.0); Mean Corpuscular Hemoglobin 28.4 pg (27.0-33.0); Mean Corpuscular Volume 88.3 fL (80.0-98.0); NRBC Abs Auto 0.000 X10*3/uL (0.0-0.012); NRBC Pct Auto 0.0 /100WBC (0.0-0.2); Platelet Count 291 X10*3/uL (160-400); Red Blood Count 4.02 X10*6/uL (4.20-5.50); White Blood Count 6.1 X10*3/uL (4.8-10.8)
[2025-02-15 11:51] LABS: Microalbum/Creatinine Ratio Ur 39.2 ug/mg cr (<30)
[2025-02-15 11:54] LABS: Alanine Aminotransferase 15 U/L (0-31); Albumin Level 4.4 g/dL (3.5-5.0); Alkaline Phosphatase 92 U/L (39-117); Anion Gap 13 (12-20); Aspartate Amino Transferase 21 U/L (5-31); Blood Urea Nitrogen 33 mg/dL (9-16); Calcium 10.1 mg/dL (8.4-10.2); Carbon Dioxide 28 mmol/L (22-29); Chloride 105 mmol/L (96-108); Cholesterol 161 mg/dL (<200); Estimated Glomerular Filt Rate > 60; HDL Cholesterol 46 mg/dL (>40); Potassium 5.6 mmol/L (3.3-5.1); Sodium 140 mmol/L (135-145); Total Protein 7.5 g/dL (6.5-8.0); Triglycerides 148 mg/dL (<150)
[2025-02-15 12:02] LABS: Free T4 (Free Thyroxine) 1.24 ng/dL (0.71-1.85); Thyroid Stimulating Hormone 1.79 uIU/mL (0.32-4.0)
[2025-02-17 15:14] LABS: Lyme Abs Screen <0.90 index
== END 2025-02-15 09:10 | disposition home or self-care (01) ==
LOC: HO.HHCL 09:09
PROVIDERS: PCP Family Medicine; Visit Provider Family Medicine
DX: M54.2 Cervicalgia (principal); M54.9 Dorsalgia, unspecified; G89.29 Other chronic pain; M89.8X9 Other specified disorders of bone, unspecified site; Z13.6 Encounter for screening for cardiovascular disorders; Z13.1 Encounter for screening for diabetes mellitus; Z13.21 Encounter for screening for nutritional disorder; Z13.29 Encounter for screening for other suspected endocrine disorder; Z01.84 Encounter for antibody response examination
CPT/HCPCS: 36415; 72040; 72100; 80048; 80061; 80076; 82043; 82306; 82570; 83036; 84439; 84443; 85027; 85652; 86038; 86140; 86431; 86617; 86618

== ENCOUNTER → 2025-02-15 09:13 | Outpatient (BNV) | payer OTHER, SELFPAY | PROVIDERS: PCP Family Medicine; Visit Provider Radiology Diagnostic Ultrasound | DX: M79.604 Pain in right leg (principal); M79.605 Pain in left leg; M79.601 Pain in right arm; M79.602 Pain in left arm | CPT/HCPCS: 72040; 72100 ==

== ENCOUNTER 2025-02-20 10:57 | Outpatient (REF) | payer OTHER, SELFPAY ==
--- OUTSIDE RECORDS SUMMARY | 2025-02-20 12:43 | XMS_ITS | Encounter Summary ---
Author Organization [employer] Address 75 [facility] 7t [place] [address] Care Team Providers Care Traffic Law Attorney Name Role Phone Zoraida Guo DO Primary Care Provider + [phone] Encounter Details Date Type Department Care Team ([facility] st Contact Info) Description 02/15/2025 Orders Only [facility] MED[facility]INE [address] [place], [place] [phone] Zoraida Guo DO [address] [place], [place] [phone] Social History Tobacco Use Types Packs/Day Years [...] Author Hemoglobin A1c < 7 Result Component 11.6(02/16/20 25 9:35 AM EST) No Gopi Brock PharmD Record your [...] Care Plan Weekly blood pressure task No Bebe Fontanez RN Weekly blood pressure task Care Plan Weekly blood pressure task No Bebe Fontanez RN Weekly blood pressure task Care Plan Weekly blood pressure task No Bebe Fontanez RN Patient has chronic kidney disease Care Plan Patient has chronic kidney disease No Bebe Fontanez RN Patient has chronic kidney disease Care Plan Patient has chronic kidney disease No Bebe Fontanez RN Patient has chronic kidney disease Care Plan Patient has chronic kidney disease No Bebe Fontanez RN Patient has diabetic neuropathy Care Plan Patient has diabetic neuropathy No Bebe Fontanez RN Patient has diabetic neuropathy Care Plan Patient has diabetic neuropathy No Bebe Fontanez RN Patient has diabetic neuropathy Care Plan Patient has diabetic neuropathy No Bebe Fontanez RN documented as of this encounter Procedures Procedure Name Priority Date/Time Associated Diagnosis Comments XR CERVICAL SPINE 3V Routine 02/15/2025 9:35 AM EST documented in this encounter Results * XR CERVICAL SPINE 3V (02/15/2025 9:35 AM EST) Anatomical Region Laterality Modality Abdomen Radiographic Lucita ging 02/15/2025 9:35 AM EST Narrative 02/15/2025 9:54 AM EST [address] [address] XRay Report Signed Patient: Nyasia Cruz MR#: [id number] : 1960 Acct:[id number] Age/Sex: 65 / F ADM Date: 02/15/25 Loc: HO.HHCL Attending Dr: Zoraida Guo DO Ordering Physician: Zoraida Guo DO Date of Service: 02/15/25 Procedure(s): XR cervical spine 3V Accession Number(s): [id number] cc: Zoraida Guo DO Reason for Exam: PAIN EXAMINATION: XR CERVICAL SPINE CLINICAL INFORMATION: PAIN COMPARISON: None available. TECHNIQUE: 3 views of the cervical spine were obtained. FINDINGS: No prevertebral soft tissue swelling. No compression fractures or subluxations are identified. Alignment is maintained at the atlanto-axial articulation. Mild C3-4 disc degeneration. Anterior endplate osteophyte of C2. Multilevel facet degeneration... Lung apices are clear. XR/XR cervical spine 3V IMPRESSION: No acute findings. Cervical spondylosis. Electronically signed by: Alex Awad MD 02/15/2025 09:52 AM EST Dictated By: Alex Awad MD Signed By: <Electronically signed by Alex Awad MD in OV> 02/15/2552 DD/ 0935 TD/TT: 02/15/25 0942 Side Show Entertainer: RAMÓN Procedure Note Donotuseinterpreter, Image - 02/15/[address] [address] XRay Report Signed Patient: Lan Cruz#: [id number] : 1960Acct:[id number] Age/Sex: 65 / FADM Date: 02/15/25 Loc: HO.HHCL Attending Dr: Zoraida Guo DO Ordering Physician: Zoraida Guo DO Date of Service: 02/15/25 Procedure(s): XR cervical spine 3V Accession Number(s): [id number] cc: Zoraida Guo DO Reason for Exam: PAIN EXAMINATION: XR CERVICAL SPINE CLINICAL INFORMATION: PAIN COMPARISON: None available. TECHNIQUE: 3 views of the cervical spine were obtained. FINDINGS: No prevertebral soft tissue swelling. No compression fractures or subluxations are identified. Alignment is maintained at the atlanto-axial articulation. Mild C3-4 disc degeneration. Anterior endplate osteophyte of C2. Multilevel facet degeneration... Lung apices are clear. XR/XR cervical spine 3V IMPRESSION: No acute findings. Cervical spondylosis. Electronically signed by: Alex Awad MD 02/15/2025 09:52 AM EST Dictated By: Alex Awad MD Signed By: <Electronically signed by Alex Awad MD in OV> 02/15/25 0952 DD/ 0935 TD/TT: 02/15/25 0942 Side Show Entertainer: RAMÓN Zoraida Guo DO IMG XR PROCEDURES Edited Res ult - Final documented in this encounter Visit Diagnoses Not [...] diabetic neuropathy 02/13/2025 Weekly blood pressure task 02/15/2025 Weekly blood pressure task 02/15/2025 Weekly blood pressure task 02/15/2025 Patient has chronic kidney disease 02/15/2025 Patient has chronic kidney disease 02/15/2025 Patient has chronic kidney disease 02/15/2025 Patient has diabetic neuropathy 02/15/2025 Patient has diabetic neuropathy 02/15/2025 Patient has diabetic neuropathy 02/15/2025 Assessment Noted Time PHQ-9 Depression Total Score: 0 06/26/20 24 12:27 PM EDT documented as of this encounter Care Teams Traffic Law Attorney Relationship Specialty Start Date End Date Zoraida Guo DO [address] [place] [address] PCP - General Family Medicine 02/11/21 documented as of this encounter
--- OUTSIDE RECORDS SUMMARY | 2025-02-20 12:43 | XMS_ITS | Encounter Summary ---
Author Organization [employer] Address [address] [facility] 7t [place] [address] Care Team Providers Care Associate Sales Name Role Phone Zoraida Guo DO Primary Care Provider + [phone] Reason for Visit * Reason Onset Date Comments Med Refill 02/15/2025 Encounter Details Date Type Department Care Team ([facility] st Contact Info) Description 02/15/2025 Refill [facility] [address] [place], [place] [phone] Zoraida Guo DO 230 [place], [place] [phone] Hyperkalemia Social History Tobacco Use Types Packs/Day Years [...] as of this encounter Miscellaneous Notes * Addendum Note - Noel Ash RN - 02/20/2025 10:53 AM ESTAddended by: NOEL ASH on: 02/20/2025 10:53 AM Modules accepted: Orders * Telephone Encounter - Bebe Fontanez RN - 02/15/2025 1:26 PM EST RN reviewed recent BW results from today with PCP which returned with an elevated potassium of 5.6.PCP would like patient to take lokelma 10g TID x2 days and repeat BW on 02/20/25. PCP reports patient should avoid potassium rich diet. TC placed to patient [phone] in regards to above message. Patient verbalized understanding andrequested medication to be sent to [facility] pharmacy in [place] d/t [facility] pharmacy closing at 3:30PM. Patient is agreeable to repeat BW on 02/20/25. Patient to f/u PRN. documented in this encounter Plan of Treatment Scheduled Orders Name Type Priority Associated Diagnoses Orde r Schedule Potassium Lab Routine Hyperkalemia Expected: 02/20/2025, Expires: 02/20/2026 documented as of this encounter Goals Goal Patient Goal Type Associated Problems Recent Progress Patient-Stated? Author Hemoglobin A1c < 7 Result Component 11.6(02/16/20 9:35 AM EST) No Gopi Brock PharmD [...] task Care Plan Weekly blood pressure task Bebe Cabrera RN Weekly blood pressure task Care Plan Weekly blood pressure task No Bebe Fontanez RN Patient has chronic kidney disease Care Plan Patient has chronic kidney disease Bebe Cabrera RN Patient has chronic kidney disease Care Plan Patient has chronic kidney disease Bebe Cabrera RN Patient has chronic kidney disease Care Plan Patient has chronic kidney disease Bebe Cabrera RN Patient has diabetic neuropathy Care Plan Patient has diabetic neuropathy Bebe Cabrera RN Patient has diabetic neuropathy Care Plan Patient has diabetic neuropathy Bebe Cabrera RN Patient has diabetic neuropathy Care Plan Patient has diabetic neuropathy Bebe Cabrera RN documented as of this encounter Visit Diagnoses Diagnosis Hyperkalemia Hyperpotassemia documented in this encounter Additional Health Concerns [...] Time PHQ-9 Depression Total Score: 0 08/19/19 12:27 PM EDT documented as of this encounter Care Teams Associate Sales Relationship Specialty Start Date End Date Zoraida Guo DO [address] [place] [address] PCP - General Family Medicine 02/11/21 documented as of this encounter
--- OUTSIDE RECORDS SUMMARY | 2025-02-20 12:43 | XMS_ITS | Encounter Summary ---
Author Organization [employer] Address [address] [facility] 7t [place] [address] Care Team Providers Care Net Web Developer Name Role Phone Zoraida Guo DO Primary Care Provider + [phone] Reason for Visit * Reason Comments Med Refill Encounter Details Date Type Department Care Team ([facility] Contact Info) Description 03/07/2024 Refill [facility]INE [address] [place], [place] [phone] Zoraida Guo DO [address] [place], [place] [phone] PTSD (post-traumatic stress disorder) Social History Tobacco [...] documented as of this encounter Care Teams Net Web Developer Relationship Specialty Start Date End Date Zoraida Guo DO [address] [place] [phone] PCP - General Family Medicine 02/11/21 documented as of this encounter
--- OUTSIDE RECORDS SUMMARY | 2025-02-20 12:43 | XMS_ITS | Encounter Summary ---
Author Organization [employer] Address [address] [facility] 7t [place] [address] Care Team Providers Care Primer Supervisor Name Role Phone SariZoraida Primary Care Provider [phone] Dellogono, Gopi PharmD Unavailable Unavail able Dellogono, Gopi PharmD Unavailable Unavail able Puia, Raisa PharmD Unavailable Encounter Details Date Type Department Care Team (Late st Contact Info) Description 03/18/2022 Orders Only [facility] [address] [place] [address] Marcelle Rodriges LPN Social History Tobacco Use [...] AM EST 04/29/2022 12:30 PM EST Tamie [facility] - 04/30/2022 12:59 PM EST ----- ------- Name: Nyasia Cruz Age/Sex: 62/F : 1960 Unit#: [id number] Attend Dr: Anna Sanchez MD Re04/29/22 Status: [facility] Location: [facility] Disch: ----- ------- SPEC : [id number] RECD: 04/29/22-1230 STATUS: REYNAElroy TADEOSarah NUM: [id number] NISREEN: 04/29/22-[address] [facility] [address]: Anna Sanchez MD ENTERED: 04/29/22-1252 SP [...] A. CEDS Copies To: Anna Sanchez MD [address] [place] [address] [place] [address] Zoraida Guo DO [address] [place] [address] ----- ------- Signed (signature on file) Keke Arora 04/30/22 1259 ----- ------- END OF REPORT [facility] External Provider LAB BLO OD ORDERABLES Final Result Performing Organization Address [facility] Co de Phone Number [facility] [address] [place] [phone] * GLUCOSE, WHOLE BLOOD (04/29/2022 10:39 AM EST) [facility] Signature Glucose, Whole Blood 83 60 - 115 mg/dL [facility] Comment:METER #: [id number] 04/29/2022 10:3 9 AM EST 04/29/2022 10:49 AM EST [facility] External Provider LAB BLO OD ORDERABLES Final Result Performing Organization Address [facility] Co de Phone Number [facility] [address] [place] [phone] * GLUCOSE, WHOLE BLOOD (04/29/2022 9:37 AM EST) Glucose, Whole Blood 76 60 - 115 mg/dL [facility] Comment:METER #: [id number] 7 04/29/2022 9:37 AM EST 04/29/2022 10:04 AM EST us [facility] External Provider LAB BLO OD ORDERABLES Final Result [facility] [address] [place] [address] [phone] documented in this encounter Visit Diagnoses Not on filedocumented in this encounter Care Teams Primer Supervisor Relationship Specialty Start Date End Date Zoraida Guo DO [address] [place] [address] PCP - General Family Medicine 02/11/21 Gopi Brock, PharmD [address] [place] [phone] Pharmacist Internal Medicine 07/02/22 08/26/22 Gopi Brock, PharmD [address] [place] [address] Pharmacist Internal Medicine 07/03/22 08/26/22 Raisa Carpenter PharmD [address] [place] [address] Pharmacist Internal Medicine 09/02/22 03/29/23 documented as of this encounter
--- OUTSIDE RECORDS SUMMARY | 2025-02-20 12:43 | XMS_ITS | Encounter Summary ---
Author Organization [employer] Address [address] [place] [address] 7 [place] [address] Care Team Providers Care Virtual Customer Assistant Name Role Phone Halima Guofer Primary Care Provider [phone] Reason for Referral * Consultation (Routine) - Closed Specialty Diagnoses / Procedures Referred By Contac t Referred To Contact Pharmacy Diagnoses Type 2 diabetes mellitus (HCC) Cristiana Graves MD [address] [place] [address] Phone: tel: fax: Referral ID Status Reason Start Date Expiration Date V isits Requested Visits Authorized [id number] Closed Continuity of Care 07/04/2024 07/04/2025 6 6 Encounter Details Date Type Department Care Team ([facility] st Contact Info) Description 07/01/2024 Orders Only [facility] [address] [place], [place] [phone] Cristiana Graves MD [address] [place], [place] [phone] Type 2 diabetes mellitus (CMS/HCC) (Primary Dx) [...] Outpatient Referral Routine Type 2 diabetes mellitus ([facility]) Ordered: 07/04/2024 documented as of this encounter Goals Goal Patient Goal Type Associated Problems Recent Progress Patient-Stated? Author Hemoglobin A1c < 7 Result Component 11.6(02/16/20 25 9:35 AM EST) No Gopi Brock, PharmLizbeth Record your [...] documented as of this encounter Care Teams Virtual Customer Assistant Relationship Specialty Start Date End Date Zoraida Guo DO [address] [place] [address] PCP - General Family Medicine 02/11/21 documented as of this encounter
--- OUTSIDE RECORDS SUMMARY | 2025-02-20 12:43 | XMS_ITS | Clinical Summary ---
Author Organization [facility] ity Address [address] [place] [address] Care Team Providers Care Fruit Dryer Name Role Phone Unavailable Primary Care Provider [...]
--- OUTSIDE RECORDS SUMMARY | 2025-02-20 12:43 | XMS_ITS | Encounter Summary ---
Author Organization [employer] Address [address] [place] [address] [address] [place] [address] Care Team Providers Care Mammal Control Agent Name Role Phone Zoraida Guo DO Primary Care Provider [phone] Dellogono, Gopi PharmD Unavailable Unavail able Dellogono, Gopi PharmD Unavailable Unavail able Puia, Raisa PharmD Unavailable [phone] Encounter Details Date Type Department Care Team (Late st Contact Info) Description 05/13/2022 Orders Only [facility] [address] [place] [address] Zoraida Kern LPN Social History Tobacco Use [...] on filedocumented in this encounter Care Teams Mammal Control Agent Relationship Specialty Start Date End Date Zoraida Guo DO [address] [place], [place] [phone] PCP - General Family Medicine 02/11/21 Dellogono, Goip, PharmD [address] [place] [address] Pharmacist Internal Medicine 07/02/22 08/26/22 Dellogono, Gopi, PharmD [address] [place] [address] Pharmacist Internal Medicine 07/03/22 08/26/22 Raisa Carpenter, BoogieD [address] [place] [address] Pharmacist Internal Medicine 09/02/22 03/29/23 documented as of this encounter
--- OUTSIDE RECORDS SUMMARY | 2025-02-20 12:44 | XMS_ITS | Clinical Summary ---
Author Organization [employer] Address [address] [place] [address] 7[address] [place] [address] Care Team Providers Care Telephone Station Installer Name Role Phone Sari Zoraida Primary Care Provider [phone] Allergies No known active allergies Medications Continuous Blood Gluc Sports Team Manager (FreeStyle Girma 2 Calhoun) device Use to check blood sugar at least every 8 hours 1 each 023 Active glucose 4 g chewable tabletIndication s:Type 2 diabetes mellitus with microalbuminuria , with long-term current use of insulin (HCC) [...] Continuous Glucose Sensor (FreeStyle Girma 2 Sensor) [facility] USE DIRECTED TO TEST BLOOD SUGAR EVERY 8 HOURS CHANGE EVERY 14 DAYS 2 each 02/15/20 25 11:23 AM EST 025 Active metFORMIN (Glucophage) 1000 MG tablet TAKE 1 TABLET BY MOUTH TWICE DAILY IN THE MORNING AND IN THE EVENING WITH MEALS 180 tablet 1 025 Active fenofibrate (Triglide) 160 MG tabletIndication s:Hypertriglycer idemia TAKE 1 TABLET BY MOUTH EVERY MORNING 30 tablet 5 02/15/20 11:23 AM EST Active FLUoxetine (PROzac) 20 MG capsuleIndicatio ns:PTSD (post-traumatic stress disorder) TAKE 1 CAPSULE BY MOUTH EVERY MORNING 30 capsule 5 02/15/20 11:23 AM EST 025 Active melatonin 5 MG tablet TAKE 2 TABLETS BY MOUTH EVERY DAY AT BEDTIME 60 tablet 5 02/15/20 11:23 AM EST Active lisinopril 2.5 MG tabletIndication s:Hypertension, unspecified type TAKE 1 TABLET BY MOUTH EVERY MORNING 90 tablet 1 02/15/20 11:23 AM EST 025 Active BD Pen Needle Anabell Ultrafine 32G X 4 MM misc USE DIRECTED EVERY DAY WITH INSULIN 100 each 3 Active glucose blood (FreeStyle Precision Otto Test) test stripIndications :Type 2 diabetes mellitus with microalbuminuria , with long-term current use of insulin (HCC) USE DIRECTED TO TEST BLOOD SUGAR THREE TIMES DAILY 100 strip 02/15/20 11:23 AM EST Active TRUEplus Lancets 33G miscIndications: Type 2 diabetes mellitus with microalbuminuria , with long-term current use of insulin (HCC) USE DIRECTED TO TEST BLOOD SUGAR THREE TIMES DAILY 100 each 02/15/20 25 11:23 AM EST 025 Active atorvastatin (Lipitor) 40 MG tablet TAKE 1 TABLET BY MOUTH AT BEDTIME 30 tablet 02/15/20 11:23 AM EST Active gabapentin (Neurontin) 300 MG capsule TAKE 1 CAPSULE BY MOUTH THREE TIMES DAILY IN THE MORNING, EVENING, AND BEDTIME 90 capsule 3 02/15/20 11:23 AM EST Active acetaminophen (Tylenol 8 Hour) 650 MG [...] bedtime for muscle spasms. 60 tablet 1 025 2025 Active Diclofenac Sodium 1 % gel Apply 2 g topically if needed in the morning, at noon, in the evening, and at bedtime (pain). 150 g 3 Active insulin glargine (Lantus SoloStar) 100 UNIT/ML penIndications:T ype 2 diabetes mellitus with microalbuminuria , with long-term current use of insulin (HCC) INJECT 30 UNITS SUBCUTANEOUSLY EVERY DAY 15 mL 3 Active Tirzepatide (Mounjaro) 5 MG/0.5ML solution auto-injectorInd ications:Type 2 diabetes mellitus with microalbuminuria , with long-term current use of insulin (HCC) Inject 5 mg under the skin 1 (one) time per week. 2 mL 3 Active atorvastatin (Lipitor) 40 MG tablet Take 1 tablet (40 mg) by mouth Once per day. 30 tablet 11 01/18/20 25 12:06 PM EST 2024 Discontinued insulin glargine (Lantus SoloStar) 100 UNIT/ML penIndications:T ype 2 diabetes mellitus with microalbuminuria , with long-term current use of insulin (HCC) INJECT 10 UNITS SUBCUTANEOUSLY EVERY DAY 15 mL 5 01/18/20 12:06 PM EST 025 2024 Discontinued(R eoanshuler (will not trigger notification to Pharmacy)) Trulicity 3 MG/0.5ML solution auto-injector INJECT ONE PEN (= 3MG) SUBCUTANEOUSLY ONCE A WEEK DIRECTED 2 mL 3 01/18/20 25 12:06 PM EST 025 2024 Discontinued gabapentin (Neurontin) 300 MG capsule TAKE 1 CAPSULE BY MOUTH THREE TIMES DAILY IN THE MORNING, EVENING, AND BEDTIME 90 capsule 3 01/18/20 25 12:06 PM EST 025 2024 Discontinued Trulicity 3 MG/0.5ML solution auto-injector INJECT ONE PEN (= 3MG) SUBCUTANEOUSLY ONCE A WEEK DIRECTED 2 mL 3 02/15/20 25 11:23 AM EST 025 2024 Discontinued sodium zirconium cyclosilicate (Lokelma) 10 g packet Take 10 g by mouth 3 times daily for 2 days. 60 g 025 2024 Active Problems Problem Noted Date Diagnosed Date [...] Encounters Date Type Department Care Team Description 02/15/2025 Refill [facility] [place] [address] Zoraida Guo DO Hyperkalemia 02/15/2025 Orders Only [facility] [place] [address] Zoraida Guo DO 02/14/2025 11:45 AM EST Office Visit [facility] [place] [place] [address] Zoraida Guo DO Chronic neck and back pain (Primary Dx); Type 2 diabetes mellitus with microalbuminuria, with long-term current use of insulin (HCC); Bone pain; Bilateral leg pain; Dizziness 02/14/2025 Travel 02/13/2025 Telephone [facility] [address] Zoraida Guo DO 02/10/2025 Telephone [facility] [place] [address] Zoraida Guo DO Appointment Request 02/09/2025 Telephone [facility] [place] [address] Zoraida Guo DO Chart Prep 02/07/2025 Telephone [facility] [address] Zoraida Guo DO Nurse Triage 02/01/2025 Refill [facility] [address] [place] [address] Zoraida Guo DO 01/30/2025 Refill [facility] [address] [place] [address] Zoraida Guo DO from Last 3 Months [...] 04/23/2011 Depression Screening 08/18/2024 08/19/2023, 08/19/19 24 COVID-19 Vaccine ( season) 2024 05/21/2021, 06/28/2020, 05/31/2020 Influenza Vaccine (#1) 2024 2021, 2017 Diabetes: Hemoglobin A1C 05/16/2025 025, 02/14/2025, 07/01/2024, Additional history exists SDOH Screening 06/28/2025 06/28/2024 Mammogram 08/10/2025 08/10/2024, 06/0 06/2023, 07/22/2022, Additional history exists Tobacco Screening 02/14/2026 02/14/2025 Diabetes: Urine Protein Screening 02/15/2026 02/15/2025, 08/21/2023, 06/10/2022, Additional history exists Lipid Panel 02/15/2026 02/15/2025, 07/25, 06/10/2022, Additional history exists Cervical Cancer Screening 09/10/2026 Pap Smear 09/10/2026 [...] Care Plan Patient has diabetic neuropathy No Tataina Laureano MA Weekly blood pressure task Care [...] Plan Patient has diabetic neuropathy No Duc Knig Weekly blood pressure task Care Plan Weekly [...] has diabetic neuropathy No Bebe Fontanez RN Procedures Procedure Name Priority Date/Time Associated Diagnosis Comments XR LUMBAR SPINE 2-3 VIEWS Routine 02/15/2025 9:42 AM EST Chronic neck and back pain C-REACTIVE PROTEIN Routine 02/15/2025 9: 35 AM EST Bone pain SED RATE BY MODIFIED WESTERGREN Routine 02/15/2025 9:35 AM EST Bone pain ALBUMIN, RANDOM URINE W/CREATININE Routine 02/15/2025 9:35 AM EST Bone pain CBC Routine 02/15/2025 9:35 AM EST Bone pain BASIC METABOLIC PANEL Routine 02/15/2025 9:35 AM EST Bone pain HEMOGLOBIN A1C Routine 02/15/2025 9:35 AM EST Bone pain HEPATIC FUNCTION PANEL Routine 9:35 AM EST Bone pain TSH Routine 02/15/2025 9:35 AM EST Bone pain LIPID PANEL, STANDARD Routine 02/15/2025 9:35 AM EST Bone pain VITAMIN D,25-OH,TOTAL,IA Routine 02/15/2025 9:35 AM EST Bone pain T4, FREE Routine 02/15/2025 9:35 AM EST Bone pain XR CERVICAL SPINE 3V Routine 02/15/2025 9:35 AM EST RHEUMATOID FACTOR Routine 02/15/2025 8:5 2 AM EST Bone pain LYME DISEASE AB W/REFL TO BLOT (IGG, IGM) Routine 02/15/2025 8:52 AM EST Bone pain POCT GLYCATED HEMOGLOBIN, TOTAL Routine 02/14/2025 12:30 PM EST Type 2 diabetes mellitus with microalbuminuria, with long-term current use of insulin (HCC) POCT GLUCOSE (CPT-93342) Routine 02/14/2025 12:29 PM EST Type 2 [...] Recently Relevant to Health Maintenance Results * XR Lumbar Spine 2-3 Views (02/15/2025 9:42 AM EST) Anatomical Region Laterality Modality Spine, L-spine Radiographic Lucita ging 02/15/2025 9:42 AM EST Narrative 02/15/2025 9:58 AM EST [address] [address] XRay Report Signed Patient: Nyasia Cruz MR#: [id number] 403 : 1960 Acct:[id number] Age/Sex: 65 / F ADM Date: 02/15/25 Loc: [facility] Attending Dr: Zoraida Guo DO Ordering Physician: Zoraida Guo DO Date of Service: 02/15/25 Procedure(s): XR lumbar spine 2-3V Accession Number(s): [id number] cc: Zoraida Guo DO Reason for Exam: diffuse arm and leg pain EXAMINATION: XR LUMBOSACRAL SPINE CLINICAL INFORMATION: diffuse arm and leg pain COMPARISON: None available. TECHNIQUE: Three views of the lumbosacral spine. FINDINGS: There is normal lumbar lordosis. Vertebral body heights are maintained. No evidence of acute compression fracture. Mild anterolisthesis of L5-S1, unchanged. Disc space narrowing at T12-L1. Multilevel endplate spurring. Facet degeneration in the lower lumbar spine. No suspicious bony lesion. Vascular calcifications. SI joints are symmetric. 2 small calcifications in the right pelvis, probable phleboliths. Symphysis pubis degeneration. XR/XR lumbar spine 2-3V IMPRESSION: No radiographic evidence of acute osseous findings Lumbar spondylosis as above Electronically signed by: Alex Awad MD 02/15/2025 09:56 AM EST Dictated By: Alex Awad MD Signed By: <Electronically signed by Alex Awad MD in OV> 02/15/25 0956 DD/ 1 TD/TT: 02/15/25941 Shank Breaker: RAMÓN Procedure Note Donotuseinterpreter, Image - 02/15/[address] [address] XRay Report Signed Patient: Lan Cruz#: [id number] 403 : 1960Acct:[id number] Age/Sex: 65 / FADM Date: 02/15/25 Loc: HO.[facility] Attending Dr: Zoraida Guo DO Ordering Physician: Zoraida Guo DO Date of Service: 02/15/25 Procedure(s): XR lumbar spine 2-3V Accession Number(s): [id number] cc: Zoraida Guo DO Reason for Exam: diffuse arm and leg pain EXAMINATION: XR LUMBOSACRAL SPINE CLINICAL INFORMATION: diffuse arm and leg pain COMPARISON: None available. TECHNIQUE: Three views of the lumbosacral spine. FINDINGS: There is normal lumbar lordosis. Vertebral body heights are maintained. No evidence of acute compression fracture. Mild anterolisthesis of L5-S1, unchanged. Disc space narrowing at T12-L1. Multilevel endplate spurring. Facet degeneration in the lower lumbar spine. No suspicious bony lesion. Vascular calcifications. SI joints are symmetric. 2 small calcifications in the right pelvis, probable phleboliths. Symphysis pubis degeneration. XR/XR lumbar spine 2-3V IMPRESSION: No radiographic evidence of acute osseous findings Lumbar spondylosis as above Electronically signed by: Alex Awad MD 02/15/2025 09:56 AM EST Dictated By: Alex Awad MD Signed By: <Electronically signed by Alex Awad MD in OV> 02/15/2556 DD/ 1 TD/TT: 02/15/25941 Shank Breaker: RAMÓN us Zoraida Guo DO IMG XR PROCEDURES Edited Res ult - Final * XR CERVICAL SPINE 3V (02/15/2025 9:35 AM EST) Anatomical Region Laterality Modality Abdomen Radiographic Lucita ging 02/15/2025 9:35 AM EST Narrative 02/15/2025 9:54 AM EST [address] [address] XRay Report Signed Patient: Nyasia Cruz MR#: [id number] 403 : 1960 Acct:[id number] Age/Sex: 65 / F ADM Date: 02/15/25 Loc: [facility] Attending Dr: Zoraida Guo DO Ordering Physician: Zoraida Guo DO Date of Service: 02/15/25 Procedure(s): XR cervical spine 3V Accession Number(s): [id number] cc: Zoraida Guo DO Reason for Exam: [...] 02/15/25 0952 DD/ 0935 TD/TT: 02/15/25 0942 Shank Breaker: RAMÓN Procedure Note Donotuseinterpreter, Image - 02/15/[address] [address] XRay Report Signed Patient: Lan Cruz#: [id number] 403 : 1960Acct:[id number] Age/Sex: 65 / FADM Date: 02/15/25 Loc: [facility] Attending Dr: Zoraida Guo DO Ordering Physician: Zoraida Guo DO Date of Service: 02/15/25 Procedure(s): XR cervical spine 3V Accession Number(s): [id number] cc: Zoraida Guo DO Reason for Exam: [...] Alex Awad MD 02/15/2025 09:52 AM EST RP Dictated By: Alex Awad MD Signed By: <Electronically signed by Aelx Awad MD in OV> 02/15/2552 DD/ TD/TT: 02/15/2542 Shank Breaker: RAMÓN Zoraida Guo DO IMG XR PROCEDURES Edited Res ult - Final * (ABNORMAL) Vitamin D, 25-Hydroxy, Total, Immunoassay (02/15/2025 9:35 AM EST) Vitamin D 25-OH Total 17.2(L) >30 ng/mL [facility] Comment: Health Based Reference Values*< 20 ng/mL Xvewkuvaj51-22 ng/mL Insufficient> 30 ng/mL Sufficient*Pietro RAMOS. N Engl J Med. 2007;357:266-280There is no well-established upper level of normal vitamin Dlevels. Some laboratories use 50 ng/mL as an upper limit ofnormal. However, toxicity is patient-dependent and may occurat any level. Careful correlation with the patient'spresentation is necessary and, if there is concern forvitamin D toxicity, treatment should be consideredirrespective of the serum level.Care must be taken in interpreting Vitamin D results fromdifferent laboratories and methodologies. Published datademonstrated that results from patients undergoinghemodialysis may show a negative bias when tested withvarious automated 25-OH vitamin D assays when compared toLC-MS/MS.When testing samples from patients whose predominant form ofVitamin D is Vitamin D2, such as patients receiving VitaminD2 supplementation, results that are subtherapeutic shouldbe confirmed with another method such as LC-MS/MS. Blood Venous blood specimen / Unknown 02/15/2025 9:35 AM EST 02/15/2025 10:59 AM EST Zoraida Guo LAB BLOOD ORDERABLES Final R esult Performing Organization Address [facility] Co de Phone Number [facility] [address] [place] [address] [phone] * (ABNORMAL) Albumin, Random Urine W/Creatinine (02/15/2025 9:35 AM EST) Creatinine, Urine 106.95 mg/dL [facility] Microalbumin Urine 42.0 mg/L [facility] Microalbum Creatinine Ratio Ur 39.2(H) <30 ug/mg cr [facility] Comment:Albumin/Creatinine R atio Reference Ranges: Normal: < 30 ug/mg creatinine Microalbuminuria: 30 - 300 ug/mg creatinineClinical Albuminuria: > 300 ug/mg creatinine Urine (Urine, Random) 02/15/2025 9:35 AM EST 02/15/2025 10:59 AM EST Zoraida Guo LAB URINE ORDERABLES Final R esult Performing Organization Address [facility] Co de Phone Number [facility] [address] [place] [address] [phone] * Sed Rate by Toi Reynolds (02/15/2025 9:35 AM EST) Erythrocyte Sedimentation Rate 15 1 - 30 MM/HR [facility] Comment:Patients with polycy themia and many hemoglobin abnormalitiesmay have depressed sed rates whereas patients with anemiamay have elevated sed rates. Blood Venous blood specimen / Unknown 02/15/2025 9:35 AM EST 02/15/2025 10:59 AM EST us Zoraida Guo DO LAB BLOOD ORDERABLES Final R esult Performing Organization Address City/[facility]/ZIP Co de Phone Number [facility] [address] [place] [phone] * (ABNORMAL) CBC (02/15/2025 9:35 AM EST) White Blood Count 6.1 4.8 - 10.8 X10*3/uL [facility] Red Blood Count 4.02(L) 4.20 - 5.50 X10*6/uL [facility] Hemoglobin 11.4(L) 12.0 - 16.0 g/dl [facility] Hematocrit 35.5(L) 37.0 - 47.0 % [facility] Mean Corpuscular Volume 88.3 80.0 - 98.0 fL [facility] Mean Corpuscular Hemoglobin 28.4 27.0 - 33.0 pg [facility] Mean Corpuscular HGB Conc 32.1 31.0 - 35.0 g/dl [facility] Red Cell Distribution Width 12.7 11.0 - 16.0 % [facility] Platelet Count 291 160 - 400 X10*3/uL [facility] Mean Platelet Volume 12.0 9.4 - 12.3 fL [facility] NRBC Pct Auto 0.0 0.0 - 0.2 /100WBC [facility] NRBC Abs Auto 0.000 0.0 - 0.012 X10*3/uL [facility] Blood Venous blood specimen / Unknown 02/15/2025 9:35 AM EST 02/15/2025 10:59 AM EST Zoraida Guo DO LAB BLOOD ORDERABLES Final R esult Performing Organization Address City/[facility]/ZIP Co de Phone Number [facility] [address] [place] [phone] * C-reactive Protein (02/15/2025 9:35 AM EST) C Reactive Protein 0.43 < or = 0.50 mg/dL [facility] Blood Venous blood specimen / Unknown 02/15/2025 9:35 AM EST 02/15/2025 10:59 AM EST Zoraida Guo DO LAB BLOOD ORDERABLES Final R esult Performing Organization Address City/[facility]/ZIP Co de Phone Number [facility] [address] [place] [phone] * TSH (02/15/2025 9:35 AM EST) Thyroid Stimulating Hormone 1.79 0.32 - 4.0 uIU/mL [facility] Comment:TSH 3rd Generation ( [employer]) Blood Venous blood specimen / Unknown 02/15/2025 9:35 AM EST 02/15/2025 10:59 AM EST Zoraida Guo DO LAB BLOOD ORDERABLES Final R esult Performing Organization Address City/[facility]/ZIP Co de Phone Number [facility] [address] [place] [phone] * T4, Free (02/15/2025 9:35 AM EST) Free T4 (Free Thyroxine) 1.24 0.71 - 1.85 ng/dL [facility] Blood Venous blood specimen / Unknown 02/15/2025 9:35 AM EST 02/15/2025 10:59 AM EST Zoraida Guo DO LAB BLOOD ORDERABLES Final R esult Performing Organization Address City/[facility]/ZIP Co de Phone Number [facility] [address] [place] [phone] * (ABNORMAL) Hemoglobin A1c (02/15/2025 9:35 AM EST) Hemoglobin A1c 11.6(H) <6.0 % [facility] Comment:Hemoglobin A1C Refer ence Range Adults: 4.8 - 6.0 % Non diabetic: < 6.0 % Goal: < 7.0 %Additional Action Suggested: > 8.0 %Note: Hemoglobin A1c results are invalid for patients with abnormal amounts of HbF. Blood transfusions may impact the HbA1c concentration in the patient sample. Estimated Average Glucose 286 mg/dL [facility] Comment:eAG = Estimated ave rage glucose which is %A1C expressed asaverage glucose, using the formula of the V7H-UtloqftCarsqnc Glucose study (ADAG), Diabetes Care, Vol.31,#8,2007 Blood Venous blood specimen / Unknown 02/15/2025 9:35 AM EST 02/15/2025 10:59 AM EST Zoraida Guo DO LAB BLOOD ORDERABLES Final R esult [facility] [address] [place] [address] [phone] * Hepatic Function Panel (02/15/2025 9:35 AM EST) Bilirubin, Total 0.2 0.0 - 1.0 mg/dL [facility] Bilirubin, Direct <0.2 0.0 - 0.5 mg/dL [facility] Aspartate Amino Transferase 21 5 - 31 U/L [facility] Alanine Aminotransferase 15 0 - 31 U/L [facility] Total Protein 7.5 6.5 - 8.0 g/dL [facility] Albumin Level 4.4 3.5 - 5.0 g/dL [facility] Alkaline Phosphatase 92 39 - 117 U/L [facility] Blood Venous blood specimen / Unknown 02/15/2025 9:35 AM EST 02/15/2025 10:59 AM EST us Zoraida Guo DO LAB BLOOD ORDERABLES Final R esult Performing Organization Address [facility] Co de Phone Number [facility] [address] [place] [phone] * Lipid Panel, Standard (02/15/2025 9:35 AM EST) Triglycerides 148 <150 mg/dL [facility] Comment:Desirable Triglyceri de: less than 150 mg/dLBorderline High Triglyceride 150-199 mg/dLHigh Triglyceride: 200-499 mg/dLVery High Triglyceride: greater than or equal to 5OO mg/dL Cholesterol 161 <200 mg/dL [facility] Comment:Desirable Cholestero l: less than 200 mg/dLBorderline High Cholesterol: 200-239 mg/dLHigh Cholesterol: greater than 239 mg/dL LDL Cholesterol Calculated 86 <100 mg/dL [facility] Comment:Desirable LDL: less than 100 mg/dLNear Optimal/Above Optimal LDL: 110- 129 mg/dLBorderline High LDL: 130-159 mg/dLHigh LDL: 160-189 mg/dLVery High LDL: greater than or equal to 190 mg/dL HDL Cholesterol 46 >40 mg/dL [facility] Comment:Desirable HDL: great er than 40 mg/dL Note: This HDL assay may give artificially low results in patients with liver disease. Blood Venous blood specimen / Unknown 02/15/2025 9:35 AM EST 02/15/2025 10:59 AM EST us Zoraida Guo DO LAB BLOOD ORDERABLES Final R esult Performing Organization Address City/[facility]/ZIP Co de Phone Number [facility] [address] [place] [phone] * (ABNORMAL) Basic Metabolic Panel (02/15/2025 9:35 AM EST) Sodium 140 135 - 145 mmol/L [facility] Potassium 5.6(H) 3.3 - 5.1 mmol/L [facility] Chloride 105 96 - 108 mmol/L [facility] Carbon Dioxide 28 22 - 29 mmol/L [facility] Anion Gap 13 12 - 20 [facility] Urea Nitrogen (BUN) 33(H) 9 - 16 mg/dL [facility] Creatinine, Serum 0.93 0.5 - 1.4 mg/dL [facility] Estimated Glomerular Filt Rate >60 [facility] Comment:Chronic Kidney Disea se: Estimated GFR < 60 mL/min/1.15b5Tnwyic Kidney Disease: Estimated GFR < 15 mL/min/1.73m2 Glucose 228(H) 60 - 115 mg/dL [facility] Calcium 10.1 8.4 - 10.2 mg/dL [facility] Blood Venous blood specimen / Unknown 02/15/2025 9:35 AM EST 02/15/2025 10:59 AM EST Zoraida Guo DO LAB BLOOD ORDERABLES Final R esult [facility] [address] [place] [phone] * Lyme Disease Ab with Reflex to Blot (IgG, IgM) (02/15/2025 8:52 AM EST) Lyme Antibody Screen <0.90 index [facility] Comment:Index Interpretation ----- < 0.90 Negative 0.90-1.09 Equivocal > 1.09 PositiveAs recommended by the Food and Drug Administration(FDA), all samples with positive or equivocalresults in a Borrelia burgdorferi antibody screenwill be tested using a blot method. Positive orequivocal screening test results should not beinterpreted as truly positive until verified as suchusing a supplemental assay (e.g., B. burgdorferi blot).The screening test and/or blot for B. burgdorferiantibodies may be falsely negative in early stagesof Lyme disease, including the period when erythemamigrans is apparent.THIS TEST WAS PERFORMED AT:[facility] [place] [phone] PEDERSON MD Lyme Blot TNP [facility] 02/15/2025 8:52 AM EST 02/15/2025 10:59 AM EST Zoraida Guo DO LAB BLOOD ORDERABLES Final R esult Performing Organization Address City/[facility]/ZIP Co de Phone Number [facility] [address] [place] [phone] * Rheumatoid Factor (02/15/2025 8:52 AM EST) Rheumatoid Factor <13.0 <15.0 IU/mL [facility] Blood Venous blood specimen / Unknown 02/15/2025 8:52 AM EST 02/15/2025 10:59 AM EST Result [facility] Zoraida Guo DO LAB BLOOD ORDERABLES Final R esult Performing Organization Address City/[facility] Co de Phone Number [facility] [address] [place] [phone] * (ABNORMAL) POCT Hgb A1c (02/14/2025 12:30 PM EST) Pathologist [facility] Hemoglobin A1C 11.8(A) 4.0 - 5.7 % QC Media Lot # [id number] Lot# Expiration Date , Blood 02/14/2025 12:3 0 PM EST Result [facility] Zoraida Guo DO POINT OF CARE TEST ENTER/AYO T ORDERABLES Final Result * (ABNORMAL) POCT Glucose (02/14/2025 12:29 PM EST) Pathologist [facility] Glucose Blood, POC 272(A) 60 - 200 mg/dL QC Media Lot # [id number] Lot# Expiration Date 3,026 Blood Capillary blood specimen / Unknown 02/14/2025 12:29 PM EST Result [facility] Zoraida Guo DO POINT OF CARE TEST ENTER/AYO T ORDERABLES Final Result * BI Mammogram Screening Tomosynthesis Bilateral (08/10/2024 9:30 AM EDT) Anatomical Region Laterality Modality Breast Bilateral Mammography 08/10/2024 9:30 AM EDT Narrative 08/15/2024 4:13 PM EDT [facility]'[address] [place] [address] Mammography Report Signed Patient: Nyasia Cruz MR#: [id number] 403 : 1960 Acct:[id number] Age/Sex: 64 / F ADM Date: 08/10/24 Loc: HO.MAMMO Attending Dr: Zoraida Guo DO Ordering Physician: Zoraida Guo DO Results: 2B enign Findings Date of Service: 08/10/24 Follow Up: 1 Year From Orig inal Mammogram Procedure(s): MM tomosynthesis screening BI Accession Number(s): [id number] cc: Zoraida Guo DO EXAMINATION: MM SCREENING [...] 08/15/24 1610 DD/ 0930 TD/TT: 08/10/24 0952 Shank Breaker: Procedure Note Donotuseinterpreter, Image - 08/15/2024 [facility] [address] [place] [address] Mammography Report Signed Patient: Lan Cruz#: [id number] : 1960Acct:[id number] Age/Sex: 64 / FADM Date: 08/10/24 Loc: HO.MAMMO Attending Dr: Zoraida Guo DO Ordering Physician: Zoraida Guoults: 2B enign Findings Date of Service: 08/10/24Follow Up: 1 Year From Orig inal Mammogram Procedure(s): MM tomosynthesis screening BI Accession Number(s): [id number] cc: Zoraida Guo DO EXAMINATION: MM SCREENING [...] 08/15/24 1610 DD/ 0930 TD/TT: 08/10/24 0952 Shank Breaker: Zoraida Sari SCHAFFER IMG BI PROCEDURES Final Resu lt * ThinPrep Imaging Pap and HPV mRNA E6/E7 with Reflex to HPV 16,18/45 (09/11/2023 11:49 AM EDT) HPV 16 RNA [facility] HPV 18/45 RNA [facility] HPV nRNA E6/E7 Not Detected Not Detected [facility] Comment:Methodology: Transcr iption-Mediated AmplificationThis assay detects E6/E7 viral messenger RNA (mRNA) from 14high-risk HPV types (16,18,31,33,35,39,45,51,52,56,58,59,66,68).Cervical sources are required for HPV testing.If a vaginal source from a patient who has had atotal hysterectomy with removal of cervix wassubmitted, please contact the testing laboratoryfor alternative testing options.For additional information, please refer [email or web address]/faq/[email or web address](This link if provided for information/educational purposes only.)THIS TEST WAS PERFORMED AT:[facility] [place] [phone] PEDERSON MD SOURCE: SEE NOTE [facility] Comment:Cervix Report Status: [facility] Clinical Information: SEE NOTE [facility] Comment:ROUTINE LMP: SEE NOTE [facility] Comment:NONE GIVEN Prev. PAP: SEE NOTE [facility] Comment:NONE GIVEN Prev. BX: SEE NOTE [facility] Comment:NONE GIVEN Statement Of Adequacy: SEE NOTE [facility] Comment:SATISFACTORY FOR SADIA LUATION General Categorization: [facility] Interpretation/Result: SEE NOTE [facility] Comment:Cytology Results: Ne gative for intraepitheliallesion or malignancy.Atrophic pattern; predominantly parabasal cells Cytology Comment SEE NOTE [facility] Comment:This Pap test has be en evaluated with computerassisted technology. Seasonal Customer Service Associate: SEE NOTE [facility] Comment:ALS, CT(ASCP)CT scre ening location: [address] [address] Review Seasonal Customer Service Associate: [facility] Pathologist NMP [facility] PAP Infection [facility] See Note SEE NOTE [facility] Comment:EXPLANATORY NOTE:The Pap is a screening test for cervical cancer. It isnot a diagnostic test and is subject to false negativeand false positive results. It is most reliable when asatisfactory sample, regularly obtained, is submittedwith relevant clinical findings and history, and whenthe Pap result is evaluated along with historic andcurrent clinical information. 09/11/2023 11:4 9 AM EDT 09/11/2023 4:35 PM EDT Narrative [facility] - 09/16/2023 5:50 PM EDT SEE SCANNED RESULTS IN EMRROUTINECERVIX us Zoraida Guo DO LAB PATHOLOGY ORDERABLES Fin al Result Performing Organization Address [facility] Co de Phone Number [facility] [address] [place] [phone] * Hepatitis C Antibody with Reflex to HCV, RNA, Quantitative, Real-Time PCR (08/21/2023 9:20 AM EDT) Hepatitis C Antibody Nonreactive Nonreactive [facility] Comment:Antibodies to HCV no t detected; does not exclude early acuteHCV infection. Blood Venous blood specimen / Unknown 08/21/2023 9:20 AM EDT 08/21/2023 11:11 AM EDT Zoraida Guo DO LAB BLOOD ORDERABLES Final R esult Performing Organization Address [facility]/ZIP Co de Phone Number [facility] [address] [place] [address] [phone] from Last 3 Months or Most [...] neuropathy 02/15/2025 Patient has diabetic neuropathy 02/15/2025 Insurance [facility] ONE CARE < 65 [place] [id number] Care Teams Telephone Station Installer Relationship Specialty Start Date End Date Zoraida Guo DO [address] [place] [address] PCP - General Family Medicine 02/11/21
[2025-02-20 14:40] LABS: Potassium 5.2 mmol/L (3.3-5.1)
== END 2025-02-20 10:58 | disposition home or self-care (01) ==
LOC: HO.HHCL 10:57
PROVIDERS: PCP Family Medicine; Visit Provider Family Medicine
DX: E87.5 Hyperkalemia (principal)
CPT/HCPCS: 36415; 84132